=== PATIENT | male | born 1955 | race Hispanic/Latino ===

== ENCOUNTER 2018-08-12 13:01 | Inpatient (IN) | payer OTHER ==
--- NOTE | 2018-08-12 15:21 | RAD REPORT ---
EXAM DESCRIPTION: CT - Head C Spine Mpr Wo Con - 08/12/2018 3:14 pm CLINICAL HISTORY: Head and neck injury status post fall. Head and neck pain COMPARISON: None. TECHNIQUE: Computed axial tomography of the head and cervical spine was obtained. Sagittal and coronal reconstruction was performed. All CT scans are performed using dose optimization technique as appropriate and may include automated exposure control or mA/KV adjustment according to patient size. FINDINGS: An intracranial bleed is not seen. The ventricles are normal in caliber. An extra-axial fl uid collection is not noted.Fluid within the visualized sinuses and mastoids is not seen A cervical fracture is not visualized. No dislocation is noted. IMPRESSION: No acute intracranial abnormality is seen. A cervical fracture is not visualized. If the patient continues to have symptoms to suggest intracra nial /spinal cord pathology then MRI would be recommended
--- NOTE | 2018-08-12 15:38 | RAD REPORT ---
EXAM DESCRIPTION: RAD - Chest Single View - 08/12/2018 3:30 pm CLINICAL HISTORY: fall, weakness Chest pain. COMPARISON: No comparisons FINDINGS: Portable technique limits examination quality. The lungs are grossly clear. The heart is normal in size. No displaced fractures.Dual lead pacer marley ce is present. IMPRESSION: No acute intrathoracic process suspected.
[2018-08-12] MEDS ORDERED: ONDANSETRON 4 MG/2 ML VIAL ONE (15:45)
[2018-08-12] MEDS ORDERED: NA CHLORIDE 0.9% 1,000 ML ONE (15:45)
[2018-08-12 16:35] LABS: Absolute Lymphocytes (CBC) 2.1 K/uL (0.7-4.9); Absolute Monocytes 0.5 K/uL (0.1-1.3); Absolute Neutrophil 3.6 K/uL (1.8-8.0); Eosinophils % 0.5 % (0-4.4); Hematocrit 32.7 % (39.6-49.0); Lymphocytes % 32.6 % (15.3-44.8); MPV 9.4 fL (7.6-11.3); Monocytes % 8.1 % (3.3-12.3); RBC Red Blood Cell Count 4.06 M/uL (4.33-5.43)
[2018-08-12 16:36] LABS: Protime INR 3.2
[2018-08-12 16:44] LABS: ALT/SGPT 48 U/L (12-78); AST/SGOT 39 U/L (15-37); Albumin 3.2 g/dL (3.4-5.0); Alkaline Phosphatase 67 U/L (45-117); BUN Blood Urea Nitrogen 22 mg/dL (7-18); Bicarbonate 28 mmol/L (21-32); Bilirubin Direct 0.7 mg/dL (0-0.2); Bilirubin Total 1.7 mg/dL (0.2-1.0); Glucose Level 101 mg/dL (74-106); Lipase 391 U/L (73-393); NT PRO-BNP 43 pg/mL (<125); Potassium 4.2 mmol/L (3.5-5.1); Sodium Level 136 mmol/L (136-145); Troponin (Emerg Dept Use Only) < 0.02 ng/mL (0.0-0.045)
--- NOTE | 2018-08-12 17:15 | RAD REPORT ---
EXAM DESCRIPTION: CTAbdomen Pelvis W Contrast - 08/12/2018 5:02 pm CLINICAL HISTORY: Abdominal pain. right sided abdominal pain, vomiting, IV ONLY COMPARISON: No comparisons TECHNIQUE: Biphasic CT imaging of the abdomen and pelvis was performed with 100 ml non-ionic IV cont rast. All CT scans are performed using dose optimization technique as appropriate and may include automated exposure control or mA/KV adjustment according to patient size. FINDINGS: The lung bases are clear. The liver is nodular in contour and small in size. No aggressive liver lesion or biliary dilatation. Several gallstones are present in the gallbladder. The spleen, pancreas, adrenal glands and kidneys a re within normal limits. No bowel obstruction, free air, free fluid or abscess. Moderate fecal retention is seen in the rectum . The appendix is not identified as a discrete structure, however, no secondary findings of appendici tis are identified. No evidence of significant lymphadenopathy. A left-sided varicocele is present. Postsurgical fusion changes of the lumbar spine. IMPRESSION: Hepatic cirrhosis. Cholelithiasis.
[2018-08-12 18:27] LABS: Urine Blood NEGATIVE (NEG); Urine Glucose NEGATIVE (NEG); Urine Protein NEGATIVE (NEG); Urine Specific Gravity 1.025 (1.005-1.030); Urine pH 5.5 (5.0-7.0)
--- NOTE | 2018-08-12 19:27 | EDPHYS ---
Physician Documentation [facility] Name: Gibran Arambula Age: 63 yrs Sex: Male : 1955 Arrival Date: 08/12/2018 Time: 13:05 Bed 15 Private MD: ED Physician Delano Santiago HPI: 08/12 14:27 This 63 yrs old Male presents to ER via Wheelchair with complaints of Blood jmm Pressure Problem. 14:27 Onset: The symptoms/episode began/occurred this morning. This is a 63 year old male jmm with a history of htn, dm, cirrhosis that presents to the ED with low blood pressure. Patient had a fall earlier today in which he tripped and lost balance. Patient denies chest pain but complaints of lower abdominal pain. Family states the patient has had intermittent episodes of vomiting over the past 3 days. . Historical: - Allergies: 13:57 No Known Allergies; ph - PMHx: 13:57 Cirrhosis; Diabetes - NIDDM; Pacemaker; Hypertension; ph - Immunization history:: Adult Immunizations not up to date. - Social history:: Smoking status: Patient/guardian denies using tobacco, but has a distant history of tobacco abuse. - Ebola Screening: : No symptoms or risks identified at this time. ROS: 14:27 Constitutional: Negative for fever, chills, and weight loss, Cardiovascular: Negative jmm for chest pain, palpitations, and edema, Respiratory: Negative for shortness of breath, cough, wheezing, and pleuritic chest pain. 14:27 Abdomen/GI: Positive for vomiting. 14:27 Neuro: Positive for weakness. 14:27 All other systems are negative. Exam: 14:27 Constitutional: This is a well developed, well nourished patient who is awake, alert, jmm and in no acute distress. Head/Face: atraumatic. Eyes: EOMI, no conjunctival erythema appreciated ENT: Moist Mucus Membranes Neck: Trachea midline, Supple Chest/axilla: Normal chest wall appearance and motion. Cardiovascular: Regular rate and rhythm. No edema appreciated 14:27 Respiratory: the patient does not display signs of respiratory distress, Respirations: normal, Breath sounds: are clear throughout. 14:27 Abdomen/GI: Inspection: obese Bowel sounds: normal, Palpation: mild abdominal tenderness, in the right lower quadrant. 14:27 Back: ROM is normal. 14:27 Skin: Appearance: Color: normal in color. 14:27 Neuro: Orientation: appropriate for stated age, Mentation: is normal, Memory: is normal. 14:27 Psych: Behavior/mood is pleasant, cooperative. Vital Signs: 13:56 BP 99 / 53; Pulse 77; Resp 20; Temp 98.9; Pulse Ox 100% on R/A; Weight 131.54 kg; ph Height 6 ft. 1 in. (185.42 cm); 19:15 BP 112 / 58; Pulse 78; Resp 19 S; Pulse Ox 97% on R/A; cc3 20:30 BP 109 / 57; Pulse 75; Resp 18 S; Pulse Ox 97% on R/A; cc3 21:00 BP 109 / 58; Pulse 77; Resp 18 S; Pulse Ox 97% on R/A; cc3 13:56 Body Mass Index 38.26 (131.54 kg, 185.42 cm) ph MDM: 14:27 Patient medically screened. rob 19:26 Data reviewed: vital signs, nurses notes. Counseling: I had a detailed discussion with alcon the patient and/or guardian regarding: the historical points, exam findings, and any diagnostic results supporting the discharge/admit diagnosis, lab results, radiology results, the need for further work-up and treatment in the hospital. ED course: I discussed the patient with Dr. Welch whom accepted admission. . 08/12 14:40 Order name: Basic Metabolic Panel; Complete Time: 17:01 [facility] 08/12 14:40 Order name: CBC with Diff; Complete Time: 17: [facility] 08/12 14:40 Order name: LFT's; Complete Time: 17: [facility] 08/12 14:40 Order name: Magnesium; Complete Time: 17:01 [facility] 08/12 14:40 Order name: NT PRO-BNP; Complete Time: 17:01 [facility] 08/12 14:40 Order name: PT-INR; Complete Time: 17:01 [facility] 08/12 14:40 Order name: Troponin (emerg Dept Use Only); Complete Time: 17:01 [facility] 08/12 14:40 Order name: Lipase; Complete Time: 17:01 [facility] 08/12 14:40 Order name: Lactate; Complete Time: 17:47 [facility] 08/12 14:40 Order name: Procalcitonin; Complete Time: 17:01 [facility] 08/12 14:40 Order name: Blood Culture Adult (2) [facility] 08/12 14:40 Order name: AMMONIA; Complete Time: 16:31 [facility] 08/12 18:17 Order name: Urine Dipstick--Ancillary (enter results); Complete Time: 18:36 [facility] 08/12 20:02 Order name: CBC with Automated Diff [facility] 08/12 14:40 Order name: XRAY Chest (1 view); Complete Time: 15:39 [facility] 08/12 14:40 Order name: EKG; Complete Time: 14:41 [facility] 08/12 14:40 Order name: Cardiac monitoring; Complete Time: 19:28 [facility] 08/12 14:40 Order name: CT Head C Spine; Complete Time: 15:23 [facility] 08/12 14:40 Order name: CT Abd/Pelvis - W/Contrast; Complete Time: 17:47 [facility] 08/12 20:02 Order name: CONS Pharmacy Consult [facility] 08/12 20:02 Order name: Regular [facility] 08/12 20:02 Order name: CBC with Automated Diff [facility] 08/12 20:02 Order name: Comprehensive Metabolic Panel [facility] 08/12 20:02 Order name: Comprehensive Metabolic Panel [facility] 08/12 20:02 Order name: Protime (+INR) [facility] 08/12 20:02 Order name: Protime (+INR) [facility] 08/12 20:02 Order name: PTT, Activated Partial Thromb [facility] 08/12 20:02 Order name: PTT, Activated Partial Thromb [facility] 08/12 14:40 Order name: EKG - Nurse/Tech; Complete Time: 19:28 [facility] 08/12 14:40 Order name: IV Saline Lock; Complete Time: 19:28 [facility] 08/12 14:40 Order name: Labs collected and sent; Complete Time: 19:28 [facility] 08/12 14:40 Order name: O2 Per Protocol; Complete Time: 19:29 [facility] 08/12 14:40 Order name: O2 Sat Monitoring; Complete Time: 19:29 [facility] Administered Medications: 16:06 Drug: NS 0.9% 1000 ml Route: IV; Rate: 1 bolus; Site: right antecubital; ls4 17:06 Follow up: IV Status: Completed infusion ls4 16:06 Drug: Zofran 4 mg Route: IVP; Site: right antecubital; ls4 16:36 Follow up: Response: No adverse reaction; Marked relief of symptoms ls4 Point of Care Testing: Guaiac: 19:15 Stool Guaiac: Negative; Stool Hemoccult Control: Pass; mw2 Disposition: 08/13 09:20 Co-signature as Attending Physician, Delano Santiago MD I agree with the assessment and rob plan of care. Disposition: 08/12/18 19:27 Hospitalization ordered by Benjamin Welch for Observation. Preliminary diagnosis are Acidosis, Volume depletion, unspecified, Hypotension. - Bed requested for Telemetry/MedSurg (observation). - Status is Observation. cc3 - Condition is Stable. - Problem is new. - Symptoms are unchanged. UTI on Admission? No Signatures: Dispatcher [employer] EDEffie Salgado, RN RN Delano Vincent MD MD cha Mickail, Joel, PA PA jmm Hall, Patricia, RN RN Alanis Caballero cc3 Renetta Manjarrez RN RN ls4 Corrections: (The following items were deleted from the chart) 08/12 20:05 19:27 Hospitalization Ordered by Benjamin Welch MD for Observation. Preliminary dw diagnosis is Acidosis; Volume depletion, unspecified; Hypotension. Bed requested for Telemetry/MedSurg (observation). Status is Observation. Condition is Stable. Problem is new. Symptoms are unchanged. UTI on Admission? No. [facility] 21:08 20:05 08/12/2018 19:27 Hospitalization Ordered by Benjamin Welch MD for Observation. cc3 Preliminary diagnosis is Acidosis; Volume depletion, unspecified; Hypotension. Bed requested for Telemetry/MedSurg (observation). Status is Observation. Condition is Stable. Problem is new. Symptoms are unchanged. UTI on Admission? No. dw
--- NOTE | 2018-08-12 19:27 | ER ---
Nurse's Notes [facility] Name: Gibran Arambula Age: 63 yrs Sex: Male : 1955 Arrival Date: 08/12/2018 Time: 13:05 Bed 15 Private MD: Diagnosis: Acidosis;Volume depletion, unspecified;Hypotension Presentation: 08/12 13:54 Presenting complaint: Child states: Was at Dr Galvez's office for check up, BP at office ph 93/46, reports recent dx of cirrhosis, pt reports dizziness, states that he fell this morning, denies injury or pain from fall. Transition of care: patient was not received from another setting of care. Onset of symptoms was August 12, 2018. Risk Assessment: Do you want to hurt yourself or someone else? Patient reports no desire to harm self or others. Initial Sepsis Screen: Does the patient meet any 2 criteria? No. Patient's initial sepsis screen is negative. Care prior to arrival: None. 13:54 Method Of Arrival: Wheelchair ph 13:54 Acuity: FERMIN 3 ph 19:15 Initial Sepsis Screen: Does the patient have a suspected source of infection? No. cc3 Patient's initial sepsis screen is negative. Triage Assessment: 19:15 General: Appears in no apparent distress. comfortable, Behavior is calm, cooperative, cc3 appropriate for age. Pain: Denies pain. EENT: No signs and/or symptoms were reported regarding the EENT system. Neuro: Level of Consciousness is awake, alert, obeys commands, Oriented to person, place, time, situation, Appropriate for age. Cardiovascular: Patient's skin is warm and dry. Respiratory: Airway is patent Respiratory effort is even, unlabored, Respiratory pattern is regular, symmetrical. GI: Abdomen is round obese. : No signs and/or symptoms were reported regarding the genitourinary system. Derm: No signs and/or symptoms reported regarding the dermatologic system. Musculoskeletal: Circulation, motion, and sensation intact. Range of motion: intact in all extremities. Historical: - Allergies: 13:57 No Known Allergies; ph - PMHx: 13:57 Cirrhosis; Diabetes - NIDDM; Pacemaker; Hypertension; ph - Immunization history:: Adult Immunizations not up to date. - Social history:: Smoking status: Patient/guardian denies using tobacco, but has a distant history of tobacco abuse. - Ebola Screening: : No symptoms or risks identified at this time. Screenin:01 Abuse screen: Denies threats or abuse. Denies injuries from another. Nutritional ls4 screening: No deficits noted. Tuberculosis screening: No symptoms or risk factors identified. Fall Risk None identified. Assessment: 16:00 General: Appears uncomfortable, ill, obese. ls4 16:00 Pain: Denies pain. Respiratory: Airway is patent Respiratory effort is even, unlabored. ls4 GI: Abdomen is round distended. Derm: Skin is dry, Skin is pink, warm \T\ dry. normal, icteric, jaundiced, Skin temperature is warm. Musculoskeletal: Circulation, motion, and sensation intact. Capillary refill < 3 seconds, Range of motion: intact in all extremities, ataxic, uses wheelchair. 19:10 Reassessment: Patient appears in no apparent distress at this time. Patient and/or cc3 family updated on plan of care and expected duration. Pain level reassessed. Patient is alert, oriented x 3, equal unlabored respirations, skin warm/dry/pink. Received this male patient from morning shift TATY Jackson as a case of blood pressure problem. With IV cannula at the right ACV saline locked. 20:30 Reassessment: Patient appears in no apparent distress at this time. Patient and/or cc3 family updated on plan of care and expected duration. Pain level reassessed. Patient is alert, oriented x 3, equal unlabored respirations, skin warm/dry/pink. Room available in 217, TATY Landeros called and gave report to TATY Pham for continuity of care and management. 21:00 Reassessment: Patient appears in no apparent distress at this time. Patient and/or cc3 family updated on plan of care and expected duration. Pain level reassessed. Patient is alert, oriented x 3, equal unlabored respirations, skin warm/dry/pink. Patient left ER for admission vitally stable by stretcher escorted by arch support technicianaden Munoz and the patient's family. Vital Signs: 13:56 BP 99 / 53; Pulse 77; Resp 20; Temp 98.9; Pulse Ox 100% on R/A; Weight 131.54 kg; ph Height 6 ft. 1 in. (185.42 cm); 19:15 BP 112 / 58; Pulse 78; Resp 19 S; Pulse Ox 97% on R/A; cc3 20:30 BP 109 / 57; Pulse 75; Resp 18 S; Pulse Ox 97% on R/A; cc3 21:00 BP 109 / 58; Pulse 77; Resp 18 S; Pulse Ox 97% on R/A; cc3 13:56 Body Mass Index 38.26 (131.54 kg, 185.42 cm) ph ED Course: 13:05 Patient arrived in ED. tw3 13:56 Triage completed. ph 13:57 Arm band placed on. ph 14:00 Renetta Manjarrez, TATY is Primary Nurse. ls4 14:02 Ravi De Paz PA is PHCP. jmm 14:02 Delano Santiago MD is Attending Physician. jmm 15:15 CT Head C Spine In Process Unspecified. EDMS 15:30 XRAY Chest (1 view) In Process Unspecified. EDMS 15:54 Radiology exam delayed due to lab results not completed at this time. (BUN/Creatinine). jg6 16:[address] via stretcher. vm2 17:01 CT Abd/Pelvis - W/Contrast Sent. ls4 17:02 CT completed. Patient tolerated procedure well. Patient moved back from CT. jg6 17:02 CT Abd/Pelvis - W/Contrast In Process Unspecified. EDMS 19:15 Patient has correct armband on for positive identification. Placed in gown. Bed in low cc3 position. Call light in reach. Side rails up X2. program services assistant on. Pulse ox on. NIBP on. 19:27 Benjamin Welch MD is Hospitalizing Provider. [facility] 20:30 No provider procedures requiring assistance completed. Patient admitted, IV remains in cc3 place. Administered Medications: 16:06 Drug: NS 0.9% 1000 ml Route: IV; Rate: 1 bolus; Site: right antecubital; ls4 17:06 Follow up: IV Status: Completed infusion ls4 16:06 Drug: Zofran 4 mg Route: IVP; Site: right antecubital; ls4 16:36 Follow up: Response: No adverse reaction; Marked relief of symptoms ls4 Point of Care Testing: Guaiac: 19:15 Stool Guaiac: Negative; Stool Hemoccult Control: Pass; mw2 Outcome: 19:27 Decision to Hospitalize by Provider. jmm 20:30 Admitted to Med/surg accompanied by aden family with patient, via stretcher, room 217, cc3 with chart, Report called to TATY Pham 20:30 Condition: stable 20:30 Instructed on the need for admit, Demonstrated understanding of instructions. 21:08 Patient left the ED. cc3 Signatures: Dispatcher [employer] EDMS Ravi De Paz PA PA jmm Hall, Patricia, RN RN Mihir, Devi 3 Barbara Sotomayor 2 Elizabeth Fabian 2 Alanis Caballero cc3 Cecily Neville6 Renetta Manjarrez RN RN ls4 Corrections: (The following items were deleted from the chart) 16:45 16:45 Radiology exam delayed due to lab results not completed at this time. vm2 (BUN/Creatinine) vm2
[2018-08-12] MEDS ORDERED: ACETAMINOPHEN 500 MG TAB PO PRN (20:00)
[2018-08-12] MEDS ORDERED: ONDANSETRON 4 MG/2 ML VIAL IV PRN (20:00)
[2018-08-12] MEDS: LACTULOSE 20 GM/30 ML UCUP PO SCH (23:05)
[2018-08-12] MEDS: NA CHLORIDE 0.9% 1,000 ML IV SCH (23:05)
[2018-08-12] MEDS: VITAMIN K (ADULT) 10 MG/ML SQ SCH (23:06)
[2018-08-13] MEDS: LACTULOSE 20 GM/30 ML UCUP PO SCH ×4 (03:13→20:51)
[2018-08-13] MEDS: MORPHINE 2 MG/ML SYR IV PRN ×4 (03:20→20:51)
[2018-08-13 05:10] LABS: Absolute Lymphocytes (CBC) 1.4 K/uL (0.7-4.9); Absolute Monocytes 0.3 K/uL (0.1-1.3); Absolute Neutrophil 4.3 K/uL (1.8-8.0); Basophils % 1.2 % (0-1.3); Eosinophils % 0.8 % (0-4.4); Hematocrit 30.3 % (39.6-49.0); Lymphocytes % 23.1 % (15.3-44.8); MPV 9.4 fL (7.6-11.3); Monocytes % 5.4 % (3.3-12.3); RBC Red Blood Cell Count 3.78 M/uL (4.33-5.43)
--- NOTE | 2018-08-13 05:27 | EKG ---
Test Date: 2018-08-12 Test Time: 15:33:58 Laryngologist: MOOKIE MEASUREMENT RESULTS: Intervals: Rate: 79 MN: 312 QRSD: 182 QT: 500 QTc: 573 Pablo: P: MN: 312 QRS: 267 T: 77 INTERPRETIVE STATEMENTS: Atrial-sensed ventricular-paced rhythm with prolonged AV conduction tracking sinus rhythm Abnormal ECG Compared to ECG 05/01/2003 11:53:00 no significant change from previous ECG Electronically Signed On 08-13-18 05:27:11 CDT by Joni Brown
[2018-08-13 05:31] LABS: Albumin 2.9 g/dL (3.4-5.0); Bilirubin Total 1.9 mg/dL (0.2-1.0); Potassium 4.1 mmol/L (3.5-5.1); Protein, Total 6.3 g/dL (6.4-8.2)
[2018-08-13 06:04] LABS: Protime INR 4.84
[2018-08-13] MEDS: VITAMIN K (ADULT) 10 MG/ML SQ SCH (08:34)
--- NOTE | 2018-08-13 09:34 | P.HP ---
Certification for Inpatient Patient admitted to: Inpatient With expected LOS: >2 Midnights Patient will require the following post-hospital care: None Practitioner: I am a practitioner with admitting privileges, knowledge of patient current condition, hospital course, and medical plan of care. Services: Services provided to patient in accordance with Admission requirements found in Title 42 Section 412.3 of the Code of Federal Regulations Patient History Date of Service: 08/12/18 Reason for admission: Hypotension History of Present Illness: Patient is a 63-year-old gentleman who came to the hospital with hypotension. His blood pressures been running low for the last few days. He has been feeling weak and lethargic. He came into the hospital for evaluation. He was found to be hypotensive here in the hospital as well. No infectious etiology was discovered as of now. He does have cirrhosis and he is on medication for his liver cirrhosis. It may be medication induced. Will check lactic acid and procalcitonin as well. He may be needing hydration. He will be admitted to the hospital for further evaluation Allergies No Known Allergies Allergy (Verified 08/12/18 22:52) Home Medications: Amiodarone HCl [Cordarone*] 0.5 tab PO BID 08/13/18 Duloxetine [Cymbalta *] 40 mg PO DAILY 08/13/18 Furosemide [Lasix] 40 mg PO BID 08/13/18 Gabapentin 100 mg PO TID 08/13/18 Hydrocodone 10/APAP 325 [[place] 10/325*] 1 tab PO Q6H PRN 08/13/18 Iron 30 mg PO DAILY 08/13/18 Lactulose [Cephulac*] 30 mg PO TID 08/13/18 Metformin ER [Glucophage ER] 500 mg PO DAILY 08/13/18 Polyethylene Glycol 3350 [Miralax] 1 packet PO TID 08/13/18 Rivaroxaban [Xarelto*] 20 mg PO DAILY 08/13/18 Spironolactone [Aldactone*] 200 mg PO BID 08/13/18 - Past Medical/Surgical History Has patient received pneumonia vaccine in the past: Yes Diabetic: Yes -: Cirrhosis -: Type 2 diabetes -: Pacemaker -: HTN -: Chronic Pain -: Frequent Falls -: Femur Sx -: Knee Sx -: Appendectomy -: Back Sx -: Shoulder Sx - Family History Father Family History: Reviewed- Non-Contributory - Social History Smoking Status: Never smoker Alcohol use: No CD- Drugs: No Place of Residence: Home Review of Systems 10-point ROS is otherwise unremarkable Physical Examination - Vital Signs Temperature: 97.3 F Blood Pressure: 111/52 Pulse: 84 Respirations: 16 Pulse Ox (%): 97 - Physical Exam General: Alert, In no apparent distress, Oriented x3 HEENT: Atraumatic, PERRLA, Mucous membr. moist/pink, EOMI, Sclerae nonicteric Neck: Supple, 2+ carotid pulse no bruit, No LAD, Without JVD or thyroid abnormality Respiratory: Clear to auscultation bilaterally, Normal air movement Cardiovascular: Regular rate/rhythm, Normal S1 S2, No murmurs Gastrointestinal: Normal bowel sounds, Soft and benign, Non-distended, No tenderness, No rebound, No guarding Musculoskeletal: No clubbing, No tenderness, Swelling Integumentary: No rashes Neurological: Normal speech, Normal tone, Sensation intact, Cranial nerves 3-12 intact, Normal affect, Abnormal gait, Abnormal strength Lymphatics: No axilla or inguinal lymphadenopathy - Studies Laboratory Data (last 24 hrs) 08/12/18 16:00: PT 36.1 H, INR 3.20 08/12/18 16:00: WBC 6.3, Hgb 10.2 L, Hct 32.7 L, Plt Count 282 08/12/18 16:00: Sodium 136, Potassium 4.2, BUN 22 H, Creatinine 1.24, Glucose 101, Magnesium 2.0, Total Bilirubin 1.7 H, AST 39 H, ALT 48, Alkaline Phosphatase 67, Lipase 391 Assessment & Plan - Problems (Diagnosis) (1) Hypotension Current Visit: Yes Status: Acute (2) Liver cirrhosis Current Visit: Yes Status: Acute (3) Acute kidney injury Current Visit: Yes Status: Acute (4) Lactic acidosis Current Visit: Yes Status: Acute - Plan Plan: 1. Gentle hydration 2. Monitor vitals closely 3. Recheck LFTs and albumin level 4. Check cortisol and aldosterone level 5. Repeat lactic acid and procalcitonin levels 6. GI and DVT prophylaxis - Advance Directives Does patient have a Living Will: Yes Does patient have a Durable POA for Healthcare: Yes - Code Status/Comfort Care Code Status: Full Code Critical Care: No Time Spent Managing PTS Care (In Minutes): 55
[2018-08-13] MEDS: NA CHLORIDE 0.9% 1,000 ML IV SCH ×2 (10:47→23:42)
[2018-08-14] MEDS: LACTULOSE 20 GM/30 ML UCUP PO SCH ×4 (02:38→21:50)
[2018-08-14] MEDS: NA CHLORIDE 0.9% 1,000 ML IV SCH (12:00)
--- NOTE | 2018-08-14 12:07 | P.PN ---
Subjective Date of Service: 08/13/18 patient still has elevated lactic acid level. . Unsure as to the etiology of his lactic acidosis. But it has increased significantly. Concern for liver disease causing this elevation. However, clinically patient continues to feel better. if his labs have improved and he clinically is doing better we will go ahead and ambulate him and then arrange for possible discharge in the morning. Review of Systems 10-point ROS is otherwise unremarkable Physical Examination - Vital Signs Temperature: 97.3 F Blood Pressure: 111/52 Pulse: 84 Respirations: 16 Pulse Ox (%): 97 - Physical Exam General: Alert, In no apparent distress, Oriented x3 HEENT: Atraumatic, Normocephalic Respiratory: Clear to auscultation bilaterally, Normal air movement Cardiovascular: No edema, Normal pulses Gastrointestinal: Normal bowel sounds, Soft and benign, Non-distended Musculoskeletal: No clubbing, No swelling, No contractures Integumentary: No rashes, No breakdown, No significant lesion, No tenderness/ swelling Neurological: Normal gait Lymphatics: No axilla or inguinal lymphadenopathy Assessment & Plan - Problems (Diagnosis) (1) Hypotension Current Visit: Yes Status: Acute (2) Liver cirrhosis Current Visit: Yes Status: Acute (3) Acute kidney injury Current Visit: Yes Status: Acute (4) Lactic acidosis Current Visit: Yes Status: Acute - Plan Plan: 1. Gentle hydration; Plan to stop metformin as this could be causing elevation of his lactic acidosis. Adjust his antihypertensives. his blood pressure was severely low which may have left him weak and debilitated. Will allow his blood pressure the come back up. Continue amiodarone dosing as well. 2. Monitor vitals closely 3. Recheck LFTs and albumin level 4. Check cortisol and aldosterone level 5. Repeat lactic acid and procalcitonin levels 6. GI and DVT prophylaxis Discharge Plan: Home Plan to discharge in: 48 Hours - Advance Directives Does patient have a Living Will: Yes Does patient have a Durable POA for Healthcare: Yes - Code Status/Comfort Care Code Status: Full Code Critical Care: No Time Spent Managing PTS Care (In Minutes): 45
[2018-08-14] MEDS ORDERED: POLYETHYL GLY 3350 17 GM/DOSE PO PRN (12:19)
--- NOTE | 2018-08-14 12:45 | P.DS ---
Discharge Date: 08/14/18 Disposition: ROUTINE DISCHARGE Discharge Condition: GOOD Reason for Admission: Hypotension - Problems (1) Hypotension Current Visit: Yes Status: Acute (2) Liver cirrhosis Current Visit: Yes Status: Acute (3) Acute kidney injury Current Visit: Yes Status: Acute (4) Lactic acidosis Current Visit: Yes Status: Acute Brief History of Present Illness: Patient is a 63-year-old gentleman who came to the hospital with hypotension. His blood pressures been running low for the last few days. He has been feeling weak and lethargic. He came into the hospital for evaluation. He was found to be hypotensive here in the hospital as well. No infectious etiology was discovered as of now. He does have cirrhosis and he is on medication for his liver cirrhosis. It may be medication induced. Will check lactic acid and procalcitonin as well. He may be needing hydration. He will be admitted to the hospital for further evaluation Hospital Course: Patient has done well during hospital stay . Patient diuresis were held. His blood pressure has improved. We have adjusted his diuretics. We have also advised him to hold metformin because the risk of lactic acidosis. 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 Patient is stable for discharge at this time. Vital Signs/Physical Exam: Temp Pulse Resp BP Pulse Ox 97.3 F 84 16 111/52 L 97 08/14/18 12:26 08/14/18 12:26 08/14/18 12:26 08/14/18 12:26 08/14/18 12:26 General: Alert, In no apparent distress, Oriented x3 Laboratory Data at Discharge: WBC 6.1 K/uL (4.3-10.9) 08/13/18 04:32 Hgb 9.8 g/dL (13.6-17.9) L 08/13/18 04:32 Hct 30.3 % (39.6-49.0) L 08/13/18 04:32 Plt Count 236 K/uL (152-406) 08/13/18 04:32 PT 53.7 SECONDS (9.5-12.5) H 08/13/18 04:32 INR 4.84 H* 08/13/18 04:32 APTT 43.9 SECONDS (24.3-36.9) H 08/13/18 04:32 Sodium 137 mmol/L (136-145) 08/13/18 04:32 Potassium 4.1 mmol/L (3.5-5.1) 08/13/18 04:32 BUN 21 mg/dL (7-18) H 08/13/18 04:32 Creatinine 1.12 mg/dL (0.55-1.3) 08/13/18 04:32 Glucose 136 mg/dL (74-106) H 08/13/18 04:32 Magnesium 2.0 mg/dL (1.8-2.4) 08/12/18 16:00 Total Bilirubin 1.9 mg/dL (0.2-1.0) H 08/13/18 04:32 AST 36 U/L (15-37) 08/13/18 04:32 ALT 42 U/L (12-78) 08/13/18 04:32 Alkaline Phosphatase 57 U/L (45-117) 08/13/18 04:32 Lipase 391 U/L (73-393) 08/12/18 16:00 Home Medications: Amiodarone HCl [Cordarone*] 0.5 tab PO BID 08/13/18 Duloxetine [Cymbalta *] 40 mg PO DAILY 08/13/18 Gabapentin 100 mg PO TID 08/13/18 Hydrocodone 10/APAP 325 [[place] 10/325*] 1 tab PO Q6H PRN 08/13/18 Iron 30 mg PO DAILY 08/13/18 Lactulose [Cephulac*] 30 mg PO TID 08/13/18 Polyethylene Glycol 3350 [Miralax] 1 packet PO TID 08/13/18 Rivaroxaban [Xarelto*] 20 mg PO DAILY 08/13/18 Furosemide [Lasix*] 20 mg PO BID #30 tab 08/14/18 Spironolactone [Aldactone*] 100 mg PO BID #60 tab 08/14/18 New Medications: Furosemide [Lasix*] 20 mg PO BID #30 tab Spironolactone [Aldactone*] 100 mg PO BID #60 tab Patient Discharge Instructions: OK TO DC IV AND DC HOME. FOLLOW-UP WITH PRIMARY CARE PROVIDER IN 1-2 WEEKS. FOLLOW-UP WITH CARDIOLOGY IN 1-2 WEEKS. RETURN TO THE ER IF the symptoms worsen. CALL DR. SWAIN AT [phone] IF ANY QUESTIONS REGARDING HOSPITAL STAY. PLEASE CALL THE FLOOR AT [phone] IF ANY MEDICATION OR NURSING QUESTIONS. Diet: Low sodium Activity: Ad lyn Time spent managing pt's care (in minutes): 35
[2018-08-14] MEDS: HYDROCODONE/APAP 10/325 TAB PO PRN (15:21)
[2018-08-14] MEDS: GABAPENTIN 100 MG CAP PO SCH ×2 (15:21→21:53)
[2018-08-14] MEDS: RIVAROXABAN 10 MG TABLET PO SCH (17:00)
[2018-08-14] MEDS ORDERED: FUROSEMIDE 40 MG TABLET PO SCH (21:00)
[2018-08-14] MEDS ORDERED: SPIRONOLACTONE 100 MG TAB PO SCH ×2 (21:00)
[2018-08-14] MEDS: AMIODARONE HCL 200 MG TAB PO SCH (21:52)
[2018-08-14] MEDS: FUROSEMIDE 20 MG TABLET PO SCH (21:52)
[2018-08-14 23:40] LABS: Urine Appearance CLEAR; Urine Bilirubin NEGATIVE (NEG); Urine Blood NEGATIVE (NEG); Urine Color YELLOW; Urine Glucose 2+ (NEG); Urine Protein NEGATIVE (NEG); Urine Specific Gravity 1.025 (1.005-1.030)
[2018-08-14 23:43] LABS: Urine Microscopic Reflex NO UMIC
[2018-08-15] MEDS: NA CHLORIDE 0.9% 1,000 ML IV SCH ×2 (02:42→14:37)
[2018-08-15 06:53] LABS: Protime INR 1.97
[2018-08-15 06:56] LABS: Absolute Lymphocytes (CBC) 1.5 K/uL (0.7-4.9); Absolute Monocytes 0.4 K/uL (0.1-1.3); Absolute Neutrophil 2.2 K/uL (1.8-8.0); Basophils % 1.8 % (0-1.3); Eosinophils % 1.6 % (0-4.4); Lymphocytes % 35.6 % (15.3-44.8); MPV 9.3 fL (7.6-11.3); Monocytes % 8.6 % (3.3-12.3)
[2018-08-15 07:32] LABS: ALT/SGPT 45 U/L (12-78); AST/SGOT 44 U/L (15-37); Albumin 2.8 g/dL (3.4-5.0); Alkaline Phosphatase 56 U/L (45-117); BUN Blood Urea Nitrogen 12 mg/dL (7-18); Bicarbonate 27 mmol/L (21-32); Bilirubin Total 1.6 mg/dL (0.2-1.0); Glucose Level 83 mg/dL (74-106); Magnesium 1.9 mg/dL (1.8-2.4); Phosphorus 2.9 mg/dL (2.5-4.9); Potassium 4.1 mmol/L (3.5-5.1); Protein, Total 5.9 g/dL (6.4-8.2); Sodium Level 138 mmol/L (136-145)
[2018-08-15] MEDS ORDERED: IRON PO SCH (09:00)
[2018-08-15] MEDS: DULOXETINE 20 MG CAP PO SCH (09:43)
[2018-08-15] MEDS: GABAPENTIN 100 MG CAP PO SCH ×3 (09:44→20:53)
[2018-08-15] MEDS: LACTULOSE 20 GM/30 ML UCUP PO SCH ×3 (09:44→20:55)
[2018-08-15] MEDS: AMIODARONE HCL 200 MG TAB PO SCH ×2 (09:44→20:54)
[2018-08-15] MEDS: FUROSEMIDE 20 MG TABLET PO SCH ×2 (09:44→20:54)
[2018-08-15] MEDS: FERROUS GLUCONATE 300 MG TAB PO SCH (09:44)
[2018-08-15] MEDS: SPIRONOLACTONE 25 MG TABLET PO SCH ×2 (09:44→20:53)
[2018-08-15] MEDS: HYDROCODONE/APAP 10/325 TAB PO PRN ×2 (09:50→20:54)
--- NOTE | 2018-08-15 17:44 | PN ---
Date of Progress Note: 08/15/2018 Subjective: The patient seen and examined. Chart reviewed and case discussed with RN. The patient still seems lethargic. Working with PT. Code Status: Full. Medications: List reviewed. Physical Examination: Vital Signs: Temperature 97.6, heart rate 76, blood pressure 115/59, respirations 18, O2 97% on room air. General: Awake, alert, oriented x3. Elderly male, appears older than stated age. Obese, BMI 37. CV: S1, S2. Regular rate and rhythm. Peripheral pulses present. Respiratory: Moving air well bilaterally. No wheezing. Gastrointestinal: Abdomen is soft, nontender, nondistended. Positive bowel sounds. Extremities: No clubbing or cyanosis. Minimal pedal edema. Neurologic: Nonfocal. The patient does have generalized weakness. Laboratory Data: Sodium 138, potassium 3.1, chloride 106, CO2 27, BUN 12, creatinine 0.81, glucose 83, calcium 7.9, phosphorus 2.9, magnesium 1.9, albumin 2.8, vitamin B12 1010, folate 11, TSH 3.7, cortisol 10.8. INR 1.97. WBC 4.2, H and H 9.3/29, platelets 198, neutrophils 52%. Blood cultures, no growth to date. Assessment: A 63-year-old male with: 1. Hypotension. Blood pressure is improving. Diuretics have been held. 2. Lactic acidosis, improving. Continue with IV fluids. 3. Acute kidney injury. Creatinine has improved. 4. Liver cirrhosis. 5. Chronic anticoagulation. 6. Coagulopathy. Corrected. Plan: Continue PT, OT. The patient will need possible halfway facility placement or rehab. We will discuss further with the patient and family. DVT prophylaxis already addressed. The patient is on blood thinners. SA/MODL Voice ID: [id number] Report ID: [id number] JASMINA
[2018-08-15] MEDS: RIVAROXABAN 10 MG TABLET PO SCH (18:53)
[2018-08-16] MEDS: NA CHLORIDE 0.9% 1,000 ML IV SCH (03:06)
[2018-08-16 05:46] LABS: Absolute Lymphocytes (CBC) 1.4 K/uL (0.7-4.9); Absolute Monocytes 0.3 K/uL (0.1-1.3); Absolute Neutrophil 1.8 K/uL (1.8-8.0); Basophils % 1.9 % (0-1.3); Hematocrit 27.5 % (39.6-49.0); Lymphocytes % 39.5 % (15.3-44.8); MPV 9.4 fL (7.6-11.3); Monocytes % 8.2 % (3.3-12.3); RBC Red Blood Cell Count 3.41 M/uL (4.33-5.43)
[2018-08-16 05:59] LABS: BUN Blood Urea Nitrogen 9 mg/dL (7-18); Bicarbonate 25 mmol/L (21-32); Glucose Level 109 mg/dL (74-106); Magnesium 1.9 mg/dL (1.8-2.4); Sodium Level 137 mmol/L (136-145)
[2018-08-16] MEDS: FUROSEMIDE 20 MG TABLET PO SCH (09:00)
--- NOTE | 2018-08-16 10:11 | P.DS ---
Admission Date: 08/13/18 Discharge Date: 08/16/18 Primary Care Provider: Dr. Muhammad; Pain management-Dr. Westbrook Disposition: DC HOME/HOME HEALTH CARE Discharge Condition: GOOD Reason for Admission: Hypotension Consultations: None Procedures: CT head: COMPARISON: None. TECHNIQUE: Computed axial tomography of the head and cervical spine was obtained. Sagittal and coronal reconstruction was performed. All CT scans are performed using dose optimization technique as appropriate and may include automated exposure control or mA/KV adjustment according to patient size. FINDINGS: An intracranial bleed is not seen. The ventricles are normal in caliber. An extra-axial fluid collection is not noted.Fluid within the visualized sinuses and mastoids is not seen A cervical fracture is not visualized. No dislocation is noted. IMPRESSION: No acute intracranial abnormality is seen. A cervical fracture is not visualized. CT AB: COMPARISON: No comparisons TECHNIQUE: Biphasic CT imaging of the abdomen and pelvis was performed with 100 ml non-ionic IV contrast. All CT scans are performed using dose optimization technique as appropriate and may include automated exposure control or mA/KV adjustment according to patient size. FINDINGS: The lung bases are clear. The liver is nodular in contour and small in size. No aggressive liver lesion or biliary dilatation. Several gallstones are present in the gallbladder. The spleen, pancreas, adrenal glands and kidneys are within normal limits. No bowel obstruction, free air, free fluid or abscess. Moderate fecal retention is seen in the rectum. The appendix is not identified as a discrete structure, however, no secondary findings of appendicitis are identified. No evidence of significant lymphadenopathy. A left-sided varicocele is present. Postsurgical fusion changes of the lumbar spine. IMPRESSION: Hepatic cirrhosis. Cholelithiasis. CXR: COMPARISON: No comparisons FINDINGS: Portable technique limits examination quality. The lungs are grossly clear. The heart is normal in size. No displaced fractures.Dual lead pacer device is present. IMPRESSION: No acute intrathoracic process suspected. Medical Problem List: Hypotension secondary to medications Acute renal injury likely from dehydration with lactic acidosis Chronic liver cirrhosis Chronic atrial fibrillation on chronic anti coagulation therapy History of dual lead pacemaker Chronic pain syndrome Anemia of chronic disease Brief History of Present Illness: 63-year-old male presented to emergency room with hypotension. Patient seen by his PCP and sent to the ER for low blood pressure. Patient had been feeling weak and lethargic. Patient with history of chronic atrial fibrillation, liver cirrhosis, hypertension and diabetes. Patient was admitted for further evaluation. Hospital Course: Patient presented with hypotension secondary to medications. Patient also found to have acute renal injury with dehydration and lactic acidosis likely related to medication as well. Medications were adjusted. Patient with history of liver cirrhosis and chronic atrial fibrillation on chronic anti coagulation therapy. Patient previously on Aldactone 100 mg 1 pill twice daily and Lasix 40 mg 1 pill twice daily. Both medications were decreased. At discharge renal function improved. Patient back to his baseline. At discharge he will continue with Aldactone 25 mg 1 pill twice daily and Lasix 20 mg 1 pill twice daily. He is to continue a 1500 cc per day fluid restriction and low- salt diet. He is to monitor his weight daily. If his weight increases by more than 5 lb he is to contact his PCP for further recommendation. Recommend to recheck lab-BMP in 1-2 weeks to monitor his progress. Further adjustment in medication may be required if low blood pressure continues. Recommend to follow up with PCP within 1 week. Patient with chronic liver cirrhosis. Diuretic therapy at adjusted as above. At discharge he will continue with lactulose 30 mg 3 times a day. He is to maintain 3-4 bowel movements daily. Recommend to follow up with GI as directed. Patient with chronic pain. Patient seen by chronic pain management physician. At discharge he will continue with hydrocodone 10/325 every 6 hr as needed for pain, gabapentin 100 mg 1 pill 3 times a day, and Cymbalta 40 mg daily. Patient will follow up with pain management to continue his care and refill on medication. Patient with chronic atrial fibrillation on chronic anti coagulation therapy. At discharge he will continue with amiodarone 100 mg 1 pill twice daily and Xarelto 20 mg daily. Recommend follow up with cardiology as directed. At discharge patient will continue with home health and physical therapy. Vital Signs/Physical Exam: Temp Pulse Resp BP Pulse Ox 97.2 F 64 16 107/56 L 96 08/16/18 04:00 08/16/18 04:00 08/16/18 04:00 08/16/18 04:00 08/16/18 04:00 General: Alert, In no apparent distress, Oriented x3, Cooperative HEENT: Atraumatic Neck: Supple Respiratory: Clear to auscultation bilaterally, Normal air movement Cardiovascular: Normal pulses, Regular rate/rhythm Gastrointestinal: Normal bowel sounds, Soft and benign, Non-distended, No tenderness, No masses, No rebound, No guarding Musculoskeletal: No erythema, No tenderness, No warmth Integumentary: No tenderness/swelling, No erythema, No warmth, No cyanosis Neurological: Normal speech, Normal strength at 5/5 x4 extr, Normal tone, Normal affect Laboratory Data at Discharge: WBC 3.7 K/uL (4.3-10.9) L 08/16/18 05:16 Hgb 8.7 g/dL (13.6-17.9) L 08/16/18 05:16 Hct 27.5 % (39.6-49.0) L 08/16/18 05:16 Plt Count 179 K/uL (152-406) 08/16/18 05:16 PT 22.6 SECONDS (9.5-12.5) H 08/15/18 06:28 INR 1.97 08/15/18 06:28 APTT 43.9 SECONDS (24.3-36.9) H 08/13/18 04:32 Sodium 137 mmol/L (136-145) 08/16/18 05:16 Potassium 4.0 mmol/L (3.5-5.1) 08/16/18 05:16 BUN 9 mg/dL (7-18) 08/16/18 05:16 Creatinine 0.83 mg/dL (0.55-1.3) 08/16/18 05:16 Glucose 109 mg/dL (74-106) H 08/16/18 05:16 Phosphorus 2.9 mg/dL (2.5-4.9) 08/15/18 06:28 Magnesium 1.9 mg/dL (1.8-2.4) 08/16/18 05:16 Total Bilirubin 1.6 mg/dL (0.2-1.0) H 08/15/18 06:28 AST 44 U/L (15-37) H 08/15/18 06:28 ALT 45 U/L (12-78) 08/15/18 06:28 Alkaline Phosphatase 56 U/L (45-117) 08/15/18 06:28 Lipase 391 U/L (73-393) 08/12/18 16:00 Home Medications: Amiodarone HCl [Cordarone*] 0.5 tab PO BID 08/13/18 Duloxetine [Cymbalta *] 40 mg PO DAILY 08/13/18 Gabapentin 100 mg PO TID 08/13/18 Hydrocodone 10/APAP 325 [[place] 10/325*] 1 tab PO Q6H PRN 08/13/18 Iron 30 mg PO DAILY 08/13/18 Lactulose [Cephulac*] 30 mg PO TID 08/13/18 Polyethylene Glycol 3350 [Miralax] 1 packet PO TID 08/13/18 Rivaroxaban [Xarelto*] 20 mg PO DAILY 08/13/18 Furosemide [Lasix*] 20 mg PO BID #60 tab 08/16/18 Spironolactone [Aldactone*] 25 mg PO BID #60 tab 08/16/18 New Medications: Furosemide [Lasix*] 20 mg PO BID #60 tab Spironolactone [Aldactone*] 25 mg PO BID #60 tab Patient Discharge Instructions: 1. Recommend a follow up with his PCP within 1 week to follow up this hospitalization. 2. Patient presented with hypotension secondary to medications. Patient also found to have acute renal injury with dehydration and lactic acidosis likely related to medication as well. Medications were adjusted. Patient with history of liver cirrhosis and chronic atrial fibrillation on chronic anti coagulation therapy. Patient previously on Aldactone 100 mg 1 pill twice daily and Lasix 40 mg 1 pill twice daily. Both medications were decreased. At discharge renal function improved. Patient back to his baseline. At discharge he will continue with Aldactone 25 mg 1 pill twice daily and Lasix 20 mg 1 pill twice daily. He is to continue a 1500 cc per day fluid restriction and low-salt diet. He is to monitor his weight daily. If his weight increases by more than 5 lb he is to contact his PCP for further recommendation. Recommend to recheck lab-BMP in 1-2 weeks to monitor his progress. Further adjustment in medication may be required if low blood pressure continues. Recommend to follow up with PCP within 1 week. 3. Patient with chronic liver cirrhosis. Diuretic therapy at adjusted as above. At discharge he will continue with lactulose 30 mg 3 times a day. He is to maintain 3-4 bowel movements daily. Recommend to follow up with GI as directed. 4. Patient with chronic pain. Patient seen by chronic pain management physician. At discharge he will continue with hydrocodone 10/325 every 6 hr as needed for pain, gabapentin 100 mg 1 pill 3 times a day, and Cymbalta 40 mg daily. Patient will follow up with pain management to continue his care and refill on medication. 5. Patient with chronic atrial fibrillation on chronic anti coagulation therapy. At discharge he will continue with amiodarone 100 mg 1 pill twice daily and Xarelto 20 mg daily. Recommend follow up with cardiology as directed. 6. At discharge patient will continue with home health and physical therapy. Diet: Low sodium Activity: Fall precautions Time spent managing pt's care (in minutes): 55
[2018-08-16] MEDS: SPIRONOLACTONE 25 MG TABLET PO SCH (11:05)
[2018-08-16] MEDS: DULOXETINE 20 MG CAP PO SCH (11:05)
[2018-08-16] MEDS: GABAPENTIN 100 MG CAP PO SCH (11:06)
[2018-08-16] MEDS: LACTULOSE 20 GM/30 ML UCUP PO SCH (11:06)
[2018-08-16] MEDS: AMIODARONE HCL 200 MG TAB PO SCH (11:06)
[2018-08-16] MEDS: FERROUS GLUCONATE 300 MG TAB PO SCH (11:06)
== END 2018-08-16 12:00 | disposition home health service (06) | DRG 312 ==
LOC: ER 13:01 → ERHOLD 20:00 → INTOOBSV 20:00 → OBSVTOIN 20:00 → 2ND 20:42 → OBSVTOIN 08-13 10:29
PROVIDERS: ADMIT Hospitalist; ATTEND Family Medicine
DX: I95.2 Hypotension due to drugs (principal); N17.9 Acute kidney failure, unspecified; E87.2 Acidosis; D68.9 Coagulation defect, unspecified; T50.0X5A Adverse effect of mineralocorticoids and their antagonists, initial encounter; Y92.019 Unspecified place in single-family (private) house as the place of occurrence of the external cause; N14.1 Nephropathy induced by other drugs, medicaments and biological substances; E86.0 Dehydration; I48.2 Chronic atrial fibrillation; Z79.01 Long term (current) use of anticoagulants; K74.60 Unspecified cirrhosis of liver; Z95.0 Presence of cardiac pacemaker; G89.4 Chronic pain syndrome; D63.8 Anemia in other chronic diseases classified elsewhere; Z87.891 Personal history of nicotine dependence
CPT/HCPCS: 36415; 70450; 71045; 72125; 74177; 80048; 80053; 80076; 81003; 82140; 82533; 82607; 82746; 83605; 83690; 83735; 83880; 84100; 84145; 84439; 84443; 84484; 85025; 85044; 85610; 85730; 87040; 93005; 96361; 96374; 97110; 97116; 97161; 97530; 99285; G0378; J2270; J2405; J3430; J7030; Q9967

== ENCOUNTER 2018-08-22 22:05 | Inpatient (IN) | payer OTHER ==
[2018-08-22 23:27] LABS: Urine Blood NEGATIVE (NEG); Urine Glucose NEGATIVE (NEG); Urine Protein 1+ (NEG); Urine Specific Gravity 1.025 (1.005-1.030); Urine pH 5.5 (5.0-7.0)
[2018-08-23 00:18] LABS: Absolute Lymphocytes (CBC) 1.7 K/uL (0.7-4.9); Absolute Monocytes 0.6 K/uL (0.1-1.3); Absolute Neutrophil 3.1 K/uL (1.8-8.0); Basophils % 1.6 % (0-1.3); Eosinophils % 0.1 % (0-4.4); Hematocrit 34.1 % (39.6-49.0); MPV 9.8 fL (7.6-11.3); Monocytes % 11.5 % (3.3-12.3)
[2018-08-23 00:21] LABS: Protime INR 3.01
[2018-08-23 00:38] LABS: Albumin 3.2 g/dL (3.4-5.0); Bilirubin Direct 0.9 mg/dL (0-0.2); Bilirubin Total 2.7 mg/dL (0.2-1.0); Protein, Total 6.9 g/dL (6.4-8.2); Troponin (Emerg Dept Use Only) 0.02 ng/mL (0.0-0.045)
--- NOTE | 2018-08-23 01:17 | EDPHYS ---
Physician Documentation [facility] Name: Gibran Arambula Age: 63 yrs Sex: Male : 1955 Arrival Date: 08/22/2018 Time: 22:14 Bed 26 Private MD: ED Physician Toi Choi HPI: 08/23 06:26 This 63 yrs old Male presents to ER via EMS with complaints of Altered Mental tw4 Status. 06:26 The patient presents with decreased responsiveness. Onset: The symptoms/episode tw4 began/occurred today. Possible causes: head injury, low blood sugar, unknown. Associated signs and symptoms: Pertinent positives: confusion, Pertinent negatives: abdominal pain, agitation, ataxia, blurred vision, combativeness, diaphoresis, diarrhea, dizziness. Current symptoms: In the emergency department the patient's symptoms are unchanged from the initial presentation. Patient's baseline: Neuro: alert and fully oriented, Motor: no deficits, Ambulation: walks without assistance. The patient has not experienced similar symptoms in the past. Historical: - Allergies: 01:16 No Known Allergies; la1 - PMHx: 00:15 Cirrhosis; Diabetes - NIDDM; Hypertension; Pacemaker; la1 - Immunization history:: Adult Immunizations unknown. - Social history:: Smoking status: unknown. - Ebola Screening: : No symptoms or risks identified at this time. ROS: 06:26 Constitutional: Negative for fever, chills, and weight loss, Eyes: Negative for injury, tw4 pain, redness, and discharge, Cardiovascular: Negative for chest pain, palpitations, and edema, Respiratory: Negative for shortness of breath, cough, wheezing, and pleuritic chest pain, Abdomen/GI: Negative for abdominal pain, nausea, vomiting, diarrhea, and constipation, Back: Negative for injury and pain, MS/Extremity: Negative for injury and deformity, Skin: Negative for injury, rash, and discoloration. 06:26 Neuro: Positive for altered mental status, Negative for dizziness, gait disturbance, seizure activity, speech changes, syncope, near syncope, tinnitus, visual changes. Exam: 06:26 Constitutional: This is a well developed, well nourished patient who is awake, alert, tw4 and in no acute distress. Head/Face: Normocephalic, atraumatic. Chest/axilla: Normal chest wall appearance and motion. Nontender with no deformity. No lesions are appreciated. Cardiovascular: Regular rate and rhythm with a normal S1 and S2. No gallops, murmurs, or rubs. Normal PMI, no JVD. No pulse deficits. Respiratory: Lungs have equal breath sounds bilaterally, clear to auscultation and percussion. No rales, rhonchi or wheezes noted. No increased work of breathing, no retractions or nasal flaring. Abdomen/GI: Soft, non-tender, with normal bowel sounds. No distension or tympany. No guarding or rebound. No evidence of tenderness throughout. MS/ Extremity: Pulses equal, no cyanosis. Neurovascular intact. Full, normal range of motion. 06:26 Neuro: Orientation: Not oriented to place, time, situation, Mentation: slow to respond, confused, Cranial nerves: CN II- XII are normal as tested. Vital Signs: 08/22 22:21 BP 118 / 54; Pulse 77; Resp 18; Temp 100.1; Pulse Ox 99% on R/A; ca1 08/23 00:15 BP 125 / 75; Pulse 92; Resp 18; Pulse Ox 98% on R/A; la1 01:09 BP 107 / 58; Pulse 75; Resp 18; Pulse Ox 98% on R/A; la1 02:33 BP 108 / 76; Pulse 76; Resp 18; Temp 98.0(O); Pulse Ox 98% on R/A; la1 MDM: 08/22 22:15 Patient medically screened. tw4 08/23 06:26 Differential Diagnosis: CVA, electrolyte abnormality, overdose, pneumonia, seizure, tw4 sepsis, volume depletion. Data reviewed: vital signs, nurses notes. Data interpreted: Pulse oximetry: Interpretation: normal. Counseling: I had a detailed discussion with the patient and/or guardian regarding: the historical points, exam findings, and any diagnostic results supporting the discharge/admit diagnosis, lab results. Physician consultation: Helen Wheeler MD regarding admission, patient's condition, need to come to ED to see patient, and will see patient in ED. 08/22 22:16 Order name: Basic Metabolic Panel tw4 08/22 22:16 Order name: CBC with Diff tw4 08/22 22:16 Order name: LFT's tw4 08/22 22:16 Order name: Magnesium; Complete [facility] 08/[facility] 22:16 Order name: NT PRO-BNP 08/22 22:16 Order name: PT-INR 08/22 22:16 Order name: Troponin (emerg Dept Use Only) 08/22 22:16 Order name: AMMONIA; Complete [facility]: 01:08 [facility] 08/22 22:17 Order name: Basic Metabolic Panel; Complete Time: 01:09 [facility] 08/23 01:09 Interpretation: Normal except: GFR 45; CRE 1.57; BUN 24; GLUC 135. 08/22 22:17 Order name: CBC with Automated Diff; Complete Time: 01:10 [facility] 08/23 01:10 Interpretation: Normal except: WBC 5.5; RBC 4.30; HGB 11.1; HCT 34.1; MCV 79.3; MCH tw4 25.7; RDW 19.7; BASO% 1.6. 08/22 22:17 Order name: Liver (Hepatic) Function; Complete Time: 01:10 [facility] 08/23 01:10 Interpretation: Normal except: AST 52; BILIT 2.7; BILID 0.9; ALB 3.2; GLOB 3.7; A/G 0.9.08/22 23:24 Order name: Urine Dipstick--Ancillary (enter results) [facility] 08/23 02:15 Order name: Lactate [facility] 08/23 02:15 Order name: Procalcitonin [facility] 08/22 22:16 Order name: XRAY Chest (1 view) [facility] 08/22 22:16 Order name: EKG; Complete Time: 22:18 08/22 22:16 Order name: Cardiac monitoring; Complete Time: 22:34 08/22 22:16 Order name: EKG - Nurse/Tech; Complete Time: 22:34 [facility] 08/22 22:16 Order name: IV Saline Lock; Complete Time: 00:17 08/22 22:16 Order name: Labs collected and sent; Complete Time: 00:17 08/22 22:16 Order name: O2 Per Protocol; Complete Time: 22:34 [facility] 08/22 22:16 Order name: O2 Sat Monitoring; Complete Time: 22:34 08/22 22:16 Order name: CT Head Brain wo Cont tw4 Administered Medications: 02:04 Drug: Lactulose 30 grams Volume: 45 ml; Route: PO; la1 02:10 Follow up: Response: No adverse reaction la1 Disposition: 08/23/18 01:16 Hospitalization ordered by Helen Wheeler for Inpatient Admission. 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 - Bed requested for Telemetry/MedSurg (Inpatient). - Status is Inpatient Admission. bb - Condition is Stable. - Problem is an ongoing problem. - Symptoms are unchanged. UTI on Admission? No Signatures: Dispatcher [employer] EDMS Emma Singer RN RN bb Attema, Lee, RN RN la1 Naty Neville RN RN cg Wadley, Terrence, MD MD tw4 Corrections: (The following items were deleted from the chart) 02:20 01:16 Hospitalization Ordered by Helen Wheeler MD for Inpatient Admission. Preliminary cg diagnosis is Heptatic encephaloathy; Hyperammonemia. Bed requested for Telemetry/MedSurg (Inpatient). Status is Inpatient Admission. Condition is Stable. Problem is an ongoing problem. Symptoms are unchanged. UTI on Admission? No. tw4 03:26 02:20 08/23/2018 01:16 Hospitalization Ordered by Helen Wheeler MD for Inpatient bb Admission. 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 Bed requested for Telemetry/MedSurg (Inpatient). Status is Inpatient Admission. Condition is Stable. Problem is an ongoing problem. Symptoms are unchanged. UTI on Admission? No. cg
--- NOTE | 2018-08-23 01:17 | ER ---
Nurse's Notes [facility] Name: Gibran Arambula Age: 63 yrs Sex: Male : 1955 Arrival Date: 08/22/2018 Time: 22:14 Bed 26 Private MD: Diagnosis: Heptatic encephaloathy;Hyperammonemia Presentation: 08/22 22:21 Presenting complaint: EMS states: family states AMS, pt has liver cirrhosis, the last ca1 time pt was this way was when he had elevated ammonia in his blood. SBP is at 90s to 100s. Transition of care: patient was not received from another setting of care. Onset of symptoms was August 22, 2018. Risk Assessment: Do you want to hurt yourself or someone else? Patient reports no desire to harm self or others. Initial Sepsis Screen: Does the patient meet any 2 criteria? Altered Mental Status. Does the patient have a suspected source of infection? No. Patient's initial sepsis screen is negative. Care prior to arrival: Medication(s) given: Normal saline infusion, 1000 mL, IV initiated. 20 GA, in the right antecubital area, Glucose check: 142. 22:21 Method Of Arrival: EMS: [facility] ca1 22:21 Acuity: FERMIN 2 ca1 Triage Assessment: 22:21 General: Appears in no apparent distress. uncomfortable, ill, Behavior is cooperative. ca1 Pain:. Neuro: Level of Consciousness is awake, confused, Oriented to person. Historical: - Allergies: 08/23 01:16 No Known Allergies; la1 - PMHx: 00:15 Cirrhosis; Diabetes - NIDDM; Hypertension; Pacemaker; la1 - Immunization history:: Adult Immunizations unknown. - Social history:: Smoking status: unknown. - Ebola Screening: : No symptoms or risks identified at this time. Screenin:16 Abuse screen: Denies threats or abuse. Nutritional screening: No deficits noted. la1 Tuberculosis screening: No symptoms or risk factors identified. Fall Risk No fall in past 12 months (0 pts). IV access (20 points). Ambulatory Aid- None/Bed Rest/Nurse Assist (0 pts). Gait- Impaired (20 pts.). Mental Status- Overestimates/Forgets Limitations (15 pts.). Total Ware Fall Scale indicates High Risk Score (45 or more points). Family Present and informed to notify staff if the need to leave the bedside. Assessment: 00:15 General: Appears obese. Neuro: Level of Consciousness is awake, lethargic, Oriented to la1 person. Cardiovascular: Capillary refill < 3 seconds Patient's skin is warm and dry. Cardiovascular: Heart tones S1 S2 present. Respiratory: Airway is patent Respiratory effort is even, unlabored, Respiratory pattern is regular, symmetrical, Breath sounds are clear bilaterally. GI: Abdomen is non-distended, obese, Bowel sounds present X 4 quads. Abd is soft and non tender X 4 quads. : No signs and/or symptoms were reported regarding the genitourinary system. 01:12 Reassessment: Patient appears in no apparent distress at this time. No changes from la1 previously documented assessment. Patient and/or family updated on plan of care and expected duration. Pain level reassessed. 01:16 Reassessment: No changes from previously documented assessment. [phone] la1 Ralf SAWYER-daughter. 02:08 Reassessment: Pt awake, alert, oriented x1, verbalizes understanding that he is being la1 admitted to hospital, able to drink lactulose PO. Vital Signs: 08/22 22:21 BP 118 / 54; Pulse 77; Resp 18; Temp 100.1; Pulse Ox 99% on R/A; ca1 08/23 00:15 BP 125 / 75; Pulse 92; Resp 18; Pulse Ox 98% on R/A; la1 01:09 BP 107 / 58; Pulse 75; Resp 18; Pulse Ox 98% on R/A; la1 02:33 BP 108 / 76; Pulse 76; Resp 18; Temp 98.0(O); Pulse Ox 98% on R/A; la1 ED Course: 08/22 22:14 Patient arrived in ED. am2 22:15 Toi Choi MD is Attending Physician. tw4 22:21 Arm band placed on right wrist. EKG completed in triage. Results shown to MD. ca1 22:28 Triage completed. ca1 23:01 XRAY Chest (1 view) In Process Unspecified. EDMS 08/23 00:14 Gilles Douglas, RN is Primary Nurse. la1 00:15 No provider procedures requiring assistance completed. Inserted saline lock: 18 gauge la1 in left antecubital area, using aseptic technique. Blood collected. 00:16 CT Head Brain wo Cont In Process Unspecified. EDMS 00:17 Placed in gown. Bed in low position. Call light in reach. quality assurance monitor chassis on. Pulse ox la1 on. NIBP on. 01:14 Helen Wheeler MD is Hospitalizing Provider. tw4 03:26 Patient admitted, IV remains in place. bb Administered Medications: 02:04 Drug: Lactulose 30 grams Volume: 45 ml; Route: PO; la1 02:10 Follow up: Response: No adverse reaction la1 Outcome: 01:16 Decision to Hospitalize by Provider. tw4 03:25 Admitted to Tele accompanied by tech, via stretcher, room 402, with chart, Report bb called to Effie Lei by Gilles Aguero RN 03:25 Condition: stable 03:25 Instructed on the need for admit. 03:26 Patient left the ED. bb Signatures: Dispatcher [employer] EDMS Emma Singer RN RN bb Gilles Douglas RN RN la1 Mavis Cuadra Terrence, MD MD tw4 Missy Schwartz RN RN ca1 Corrections: (The following items were deleted from the chart) 01:19 01:16 Reassessment: No changes from previously documented assessment. [phone] la1 Ralf SAWYER-daughter la1
[2018-08-23] MEDS ORDERED: LACTULOSE 20 GM/30 ML UCUP ONE (02:12)
--- NOTE | 2018-08-23 02:29 | P.HP ---
Certification for Inpatient Patient admitted to: Inpatient With expected LOS: >2 Midnights Practitioner: I am a practitioner with admitting privileges, knowledge of patient current condition, hospital course, and medical plan of care. Services: Services provided to patient in accordance with Admission requirements found in Title 42 Section 412.3 of the Code of Federal Regulations Patient History Date of Service: 08/23/18 Reason for admission: hepatic encephalopathy History of Present Illness: Mr Arambula is a 63 years old male with history of DM II, HTN, pacemaker, obesity , liver cirrhosis who was recently admitted to the hospital due to hypotension, came to ED because altered mental status. According to his family member, the patient had a family trip, and he decided to do not bring his lactulose to avoid recurrent bowel movements, last time he took lactulose was 3 days ago. Gradually the patient was decreasing hin mental status. Since last night, the patient was very difficult to awake. Family says that the last time the patient had similar symptoms was when his ammonina was elevated. No history of fever or chills. initial temp was 100.1F, subsequent temp control was 98.5 F without received medication. Lab work shows normal WBC count, UA unremarkable, ammonia level 98, CXR without obvious acute infiltrate. Allergies No Known Allergies Allergy (Verified 08/12/18 22:52) Home medications list reviewed: Yes Home Medications: Amiodarone HCl [Cordarone*] 0.5 tab PO BID 08/13/18 Duloxetine [Cymbalta *] 40 mg PO DAILY 08/13/18 Gabapentin 100 mg PO TID 08/13/18 Hydrocodone 10/APAP 325 [[place] 10/325*] 1 tab PO Q6H PRN 08/13/18 Iron 30 mg PO DAILY 08/13/18 Lactulose [Cephulac*] 30 mg PO TID 08/13/18 Polyethylene Glycol 3350 [Miralax] 1 packet PO TID 08/13/18 Rivaroxaban [Xarelto*] 20 mg PO DAILY 08/13/18 Furosemide [Lasix*] 20 mg PO BID #60 tab 08/16/18 Spironolactone [Aldactone*] 25 mg PO BID #60 tab 08/16/18 - Past Medical/Surgical History Diabetic: Yes -: Cirrhosis -: Type 2 diabetes -: Pacemaker -: HTN -: Chronic Pain -: Frequent Falls -: Femur Sx -: Knee Sx -: Appendectomy -: Back Sx -: Shoulder Sx - Family History Family History: Reviewed- Non-Contributory - Social History Smoking Status: Never smoker Alcohol use: No CD- Drugs: No Place of Residence: Home Review of Systems 10-point ROS is otherwise unremarkable Physical Examination - Physical Exam General: In no apparent distress, Other (obtunded, but easy to arouse) HEENT: Atraumatic, PERRLA, Mucous membr. moist/pink, EOMI, Sclerae nonicteric Neck: Supple, 2+ carotid pulse no bruit, No LAD, Without JVD or thyroid abnormality Respiratory: Clear to auscultation bilaterally, Normal air movement Cardiovascular: Regular rate/rhythm, Normal S1 S2 Gastrointestinal: Normal bowel sounds, No tenderness Musculoskeletal: No tenderness Integumentary: No rashes Neurological: Normal strength at 5/5 x4 extr, Normal tone, Normal affect Lymphatics: No axilla or inguinal lymphadenopathy - Studies Laboratory Data (last 24 hrs) 08/23/18 00:09: PT 34.0 H, INR 3.01 08/23/18 00:09: WBC 5.5 D, Hgb 11.1 L, Hct 34.1 L D, Plt Count 212 08/23/18 00:09: Sodium 138, Potassium 4.0, BUN 24 H, Creatinine 1.57 H, Glucose 135 H, Magnesium 2.0, Total Bilirubin 2.7 H, AST 52 H, ALT 49, Alkaline Phosphatase 64 Assessment and Plan - Problems (Diagnosis) (1) Hepatic encephalopathy Current Visit: Yes Status: Acute (2) Diabetes mellitus Current Visit: Yes Status: Acute Qualifiers: Diabetes mellitus type: type 2 Diabetes mellitus nursing home insulin use: with termination clerk use Diabetes mellitus complication status: with unspecified complications Qualified Code(s): E11.8 - Type 2 diabetes mellitus with unspecified complications; Z79.4 - retirement (current) use of insulin (3) Liver cirrhosis Current Visit: No Status: Acute Qualifiers: Hepatic cirrhosis type: unspecified hepatic cirrhosis Ascites presence: unspecified Qualified Code(s): K74.60 - Unspecified cirrhosis of liver (4) Pacemaker Current Visit: Yes Status: Acute (5) Acute kidney injury superimposed on CKD Current Visit: Yes Status: Acute - Plan Admit the patient due to hepatic encephalopathy. Will resume lactulose, add Rifaximin. Check HgbA1c, the patient has documented history of DM but in not on any medication. Fall precautions. Will monitor his temp, he possibly had a wrong high temp reading at presentation. Lactate and procalcitonin pending. - Advance Directives Does patient have a Living Will: Yes Does patient have a Durable POA for Healthcare: Yes - Code Status/Comfort Care Code Status Assessed: Yes Code Status: Full Code
[2018-08-23] MEDS ORDERED: GLUCAGON 1 MG/VIAL IM PRN (03:37)
[2018-08-23] MEDS ORDERED: ONDANSETRON 4 MG/2 ML VIAL IV PRN (03:37)
[2018-08-23] MEDS ORDERED: D50W 25 GM/50 ML SYRINGE IV PRN (03:37)
[2018-08-23] MEDS: NA CHLORIDE 0.9% 1,000 ML IV SCH ×3 (06:13→20:12)
[2018-08-23] MEDS: INSULIN -REGULAR HUMAN 50 UNIT/0.5 ML ML SQ SCH ×4 (07:30→20:11)
--- NOTE | 2018-08-23 08:25 | RAD REPORT ---
EXAM DESCRIPTION: RAD - Chest Single View - 08/22/2018 11:00 pm CLINICAL HISTORY: Cough, altered mental status COMPARISON: August 12 TECHNIQUE: AP portable chest image was obtained 2237 hours . FINDINGS: No focal lung parenchymal process. Lung markings are similar to comparison. No failure or volume overload. Heart and vasculature are normal. No measurable pleural effusion and no pneumothorax. No acute bony abnormality seen. No acute aortic findings suspected. IMPRESSION: No acute cardiopulmonary process. No significant interval change.
--- NOTE | 2018-08-23 08:47 | EKG ---
Test Date: 2018-08-22 Test Time: 22:26:20 Mounter: VERONICA MEASUREMENT RESULTS: Intervals: Rate: 87 MA: 280 QRSD: 200 QT: 530 QTc: 637 [place]: P: -3 MA: 280 QRS: -89 T: 81 INTERPRETIVE STATEMENTS: Atrial-sensed ventricular-paced rhythm tracking Sinus rhythm with long AV delay Abnormal ECG Compared to ECG 08/12/2018 15:33:58 no significant change from previous ECG Electronically Signed On 08-23-18 08:47:03 CDT by Joni Brown
[2018-08-23] MEDS: LACTULOSE 20 GM/30 ML UCUP PO SCH ×3 (09:16→20:10)
--- NOTE | 2018-08-23 12:14 | RAD REPORT ---
EXAM DESCRIPTION: CT - Head Brain Wo Cont - 08/23/2018 6:37 am CLINICAL HISTORY: 63 years Male DECLINING STATE COMPARISON: None TECHNIQUE: Contiguous axial images of the brain were obtained without the administration of intraven ous contrast.This exam was performed according to our departmental dose-optimization program which in cludes use of Automated Exposure Control, adjustment of the mA and/or kV according to patient size an d/or use of iterative reconstruction technique. FINDINGS: Brain: No acute intracranial hemorrhage. No extra-axial collection. No mass effect or bartolo iation. Mild prominence of the sulci and cisterns Confluent periventricular and subcortical white m atter hypodensity is noted. Ventricles: Within normal limits in size. Globes and orbits: No acute abnormality. Prior cataract surgery. Bones: No acute osseous finding. Paranasal sinuses: Trace mucosal thickening of the ethmoid. Rightward deviation of the bony nasal sep latisha. No air-fluid level. Mastoid air cells: Well pneumatized.. Soft tissues: Within normal limits Manager Continuous Improvement view shows no additional significant finding IMPRESSION: No acute intracranial hemorrhage or herniation. Mild cerebral volume loss and chronic small vessel ischemic changes. If persistent clinical concern f or acute ischemia, consider MRI brain without contrast for further evaluation. Mild paranasal sinus disease. Electronically signed by: Alen Forte DO 08/23/2018 12:19 AM CDT Due to temporary technical issues with the PACS/Fluency reporting system, reports are being signed by the in house radiologist as a courtesy to ensure prompt reporting. The interpreting radiologist is f ully responsible for the content of the report.
[2018-08-23] MEDS: Rifaximin 550 MG Tab PO SCH ×2 (13:11→20:10)
--- NOTE | 2018-08-23 18:08 | PN ---
Date of Progress Note: 08/23/2018 code status full Subjective: The patient seen and examined, chart reviewed and case discussed with RN. The patient denies any specific complaints. Seems to be more awake and alert today. No family at the bedside. Medications: List reviewed. Physical Examination: Vital Signs: Temperature 98.1, heart rate 95, blood pressure 120/72, respirations 16, O2 98% on room air. General: Awake, alert, oriented x3. Elderly male, obese, BMI 37. Ill- appearing. CV: S1, S2. Regular rate and rhythm. Peripheral pulses present. Respiratory: Moving air well bilaterally. No wheezing or stridor. Gastrointestinal: Abdomen is soft, nontender. Mild distention. Bowel sounds positive. Extremities: No clubbing, cyanosis. The patient has pedal edema. Neuro: Cranial nerves 2 through 12 intact grossly. No focal neurological deficit. Speech is normal. Laboratory Data: Sodium 138, potassium 4, chloride 102, CO2 25, BUN 24, creatinine 1.57, lactate 2.9. Ammonia 98. Procalcitonin less than 0.05. WBC 5.5, H and H 11.1 and 34.1, platelets 212. CT scan of the head shows no acute intracranial hemorrhage or herniation, chronic small vessel ischemic changes present. Mild paranasal sinus disease. Chest x-ray shows no acute cardiopulmonary process. No significant interval change. Assessment: 1. Hepatic encephalopathy, acute. Ammonia level is elevated. We will continue lactulose and monitor. Improving. 2. Diabetes mellitus type 2 with long-term use of insulin with hyperglycemia. We will continue sliding scale insulin and monitor Accu-Cheks. 3. Liver cirrhosis. Mild ascites at this time. No hepatic coma. 4. Status post pacemaker. 5. Acute kidney injury. Baseline creatinine was normal on previous admission. We will continue with IV fluids and monitor gentle IV fluid hydration due to cirrhosis. 6. Obesity, body mass index 37. 7. Essential hypertension. We will resume home medications as appropriate. 8. Generalized weakness, disuse myopathy. We will obtain PT and OT consultation. 9. Deep vein thrombosis prophylaxis, sequential compression device. The patient's INR is 3, likely related to his hepatic disease. 10. Metabolic acidosis. Lactate level is 2.9. 11. Hypochromic microcytic anemia, likely anemia of iron deficiency. Plan: We will continue to monitor. The patient will benefit from group home facility. We will discuss with Case Management. EB Voice ID: [id number] Report ID: [id number] MTDCliff
[2018-08-24 06:06] LABS: Absolute Lymphocytes (CBC) 2.2 K/uL (0.7-4.9); Absolute Monocytes 0.4 K/uL (0.1-1.3); Absolute Neutrophil 2.1 K/uL (1.8-8.0); Basophils % 3.7 % (0-1.3); Eosinophils % 0.9 % (0-4.4); Hematocrit 31.4 % (39.6-49.0); Lymphocytes % 44.8 % (15.3-44.8); MPV 9.7 fL (7.6-11.3); Monocytes % 8.8 % (3.3-12.3); RBC Red Blood Cell Count 3.93 M/uL (4.33-5.43)
[2018-08-24 06:08] LABS: Albumin 2.8 g/dL (3.4-5.0); Bilirubin Total 2.8 mg/dL (0.2-1.0); Potassium 3.8 mmol/L (3.5-5.1); Protein, Total 6.2 g/dL (6.4-8.2)
[2018-08-24] MEDS ORDERED: POTASSIUM 25 MEQ EFFERV TAB PO ONE (06:12)
[2018-08-24] MEDS: INSULIN -REGULAR HUMAN 50 UNIT/0.5 ML ML SQ SCH ×4 (07:30→20:45)
[2018-08-24 08:04] LABS: Anisocytosis 1+; Blood Morphology Comment NOTED (NOT SEEN); Platelet Estimate ADEQ; Urine White Blood Cell Casts OK
[2018-08-24] MEDS ORDERED: ALBUMIN HUMAN 25% 50 ML IV ONE (08:49)
[2018-08-24] MEDS: Rifaximin 550 MG Tab PO SCH ×3 (09:00→20:45)
[2018-08-24] MEDS: LACTULOSE 20 GM/30 ML UCUP PO SCH ×3 (09:20→20:43)
--- NOTE | 2018-08-24 10:59 | P.PN ---
Subjective Date of Service: 08/24/18 Chief Complaint: hepatic encephalopathy Patient seen and examined at bedside with RN. Chart reviewed. Case discussed with nursing staff at bedside. This morning no complaints to offer. Overnight and did well overall as well. Currently alert and oriented x3. Review of Systems 10-point ROS is otherwise unremarkable Physical Examination - Vital Signs Temperature: 97.6 F Blood Pressure: 101/52 Pulse: 76 Respirations: 18 Pulse Ox (%): 94 - Physical Exam General: Alert, In no apparent distress, Oriented x3 HEENT: Atraumatic, PERRLA, EOMI Neck: Supple, JVD not distended Respiratory: Clear to auscultation bilaterally, Normal air movement Cardiovascular: Regular rate/rhythm, Normal S1 S2 Gastrointestinal: Normal bowel sounds, Ascites Musculoskeletal: No tenderness, Swelling (2+ pitting edema bilateral lower extremity) Integumentary: No rashes Neurological: Normal speech, Normal tone, Normal affect Lymphatics: No axilla or inguinal lymphadenopathy - Studies Medications List Reviewed: Yes Assessment And Plan - Current Problems (Diagnosis) (1) Hepatic encephalopathy Current Visit: Yes Status: Acute Plan: Hepatic encephalopathy most likely secondary to liver cirrhosis. -currently on lactulose 20 mg t.i.d. -ammonia level is at 105 this morning. -patient is alert and oriented x3 this morning as well. -will have him work with physical therapy, occupational therapy and speech therapy (2) Lactic acidosis Current Visit: No Status: Acute Plan: Most likely secondary to metabolic acidosis -lactic acid trending down today to 2.1 -no evidence of infection noted. 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 Will most likely need long term facility versus rehab placement on discharge. Will monitor for next 24-48 hr. Discharge Plan: Other Plan to discharge in: Greater than 2 days - Code Status/Comfort Care Code Status Assessed: Yes Critical Care: No
[2018-08-25] MEDS: INSULIN -REGULAR HUMAN 50 UNIT/0.5 ML ML SQ SCH ×4 (07:30→20:25)
[2018-08-25] MEDS ORDERED: POTASSIUM CL SA 10 MEQ TAB PO ONE (09:00)
[2018-08-25] MEDS: LACTULOSE 20 GM/30 ML UCUP PO SCH ×3 (09:02→20:24)
[2018-08-25] MEDS: Rifaximin 550 MG Tab PO SCH ×2 (09:03→20:25)
--- NOTE | 2018-08-25 13:15 | P.PN ---
Subjective Date of Service: 08/25/18 Chief Complaint: hepatic encephalopathy Patient seen and examined at bedside with RN. Chart reviewed. Case discussed with nursing staff at bedside. Denies having BM yesterday. Is currently AAOx3 and awaiting a bed at [facility] Review of Systems 10-point ROS is otherwise unremarkable Physical Examination - Vital Signs Temperature: 97.1 F Blood Pressure: 99/47 Pulse: 75 Respirations: 20 Pulse Ox (%): 96 - Physical Exam General: Alert, In no apparent distress, Oriented x3 Respiratory: Clear to auscultation bilaterally, Normal air movement Cardiovascular: Regular rate/rhythm, Normal S1 S2 Gastrointestinal: Normal bowel sounds, No tenderness Musculoskeletal: No tenderness Integumentary: No rashes Neurological: Normal speech, Normal tone, Normal affect Lymphatics: No axilla or inguinal lymphadenopathy - Studies Medications List Reviewed: Yes Assessment And Plan - Current Problems (Diagnosis) (1) Hepatic encephalopathy Current Visit: Yes Status: Acute Plan: Hepatic encephalopathy most likely secondary to liver cirrhosis. -currently on lactulose 20 mg t.i.d. -ammonia level yesterday was 105. Will recheck Roman AM -patient is alert and oriented x3 this morning as well. -will have him work with physical therapy, occupational therapy and speech therapy (2) Lactic acidosis Current Visit: No Status: Acute Plan: Most likely secondary to metabolic acidosis -lactic acid elevated again today at 3.7. Will repeat in AM -no evidence of infection noted. -will continue to monitor closely (3) Acute kidney injury superimposed on CKD Current Visit: Yes Status: Acute Plan: BUN and creatinine initially elevated most likely secondary to dehydration -currently BUN and creatinine back to baseline -will monitor patient closely here in the hospital -IV albumin x1 (4) Diabetes mellitus Current Visit: Yes Status: Chronic Qualifiers: Diabetes mellitus type: type 2 Diabetes mellitus custodial insulin use: with custodial use Diabetes mellitus complication status: with unspecified complications Qualified Code(s): E11.8 - Type 2 diabetes mellitus with unspecified complications; Z79.4 - half-way (current) use of insulin (5) Liver cirrhosis Current Visit: No Status: Chronic Qualifiers: Hepatic cirrhosis type: unspecified hepatic cirrhosis Ascites presence: unspecified Qualified Code(s): K74.60 - Unspecified cirrhosis of liver - Plan Patient is currently pending clinical improvement at this time. Will most likely need assisted facility versus rehab placement on discharge. Will monitor for next 24-48 hr. Discharge Plan: Other Plan to discharge in: Greater than 2 days - Code Status/Comfort Care Code Status Assessed: Yes Critical Care: No
[2018-08-25] MEDS: GABAPENTIN 100 MG CAP PO SCH ×2 (13:26→20:24)
[2018-08-25] MEDS: FUROSEMIDE 40 MG TABLET PO SCH (16:40)
[2018-08-25] MEDS: RIVAROXABAN 20 MG TABLET PO SCH (16:41)
[2018-08-25] MEDS ORDERED: LACTULOSE 20 GM/30 ML UCUP PO ONE (17:00)
[2018-08-25] MEDS ORDERED: NA CHLORIDE 0.9% 50 ML ONE (17:13)
[2018-08-25] MEDS: SPIRONOLACTONE 100 MG TAB PO SCH (20:24)
[2018-08-25] MEDS: AMIODARONE HCL 200 MG TAB PO SCH (20:24)
[2018-08-25] MEDS: FERROUS SULFATE 325 MG TAB PO SCH (20:27)
[2018-08-26 04:23] LABS: Absolute Lymphocytes (CBC) 2.3 K/uL (0.7-4.9); Absolute Monocytes 0.5 K/uL (0.1-1.3); Absolute Neutrophil 2.3 K/uL (1.8-8.0); Eosinophils % 1.3 % (0-4.4); Hematocrit 32.4 % (39.6-49.0); Lymphocytes % 43.3 % (15.3-44.8); MPV 9.6 fL (7.6-11.3); Monocytes % 9.1 % (3.3-12.3); RBC Red Blood Cell Count 4.02 M/uL (4.33-5.43)
[2018-08-26 04:33] LABS: Albumin 3.1 g/dL (3.4-5.0); Bilirubin Total 2.5 mg/dL (0.2-1.0); Potassium 4.1 mmol/L (3.5-5.1); Protein, Total 6.3 g/dL (6.4-8.2)
[2018-08-26 04:36] LABS: Basophils % 3.1 % (0-1.3)
[2018-08-26] MEDS: INSULIN -REGULAR HUMAN 50 UNIT/0.5 ML ML SQ SCH ×4 (07:30→21:00)
[2018-08-26] MEDS: Rifaximin 550 MG Tab PO SCH ×2 (09:00→21:00)
[2018-08-26] MEDS: SPIRONOLACTONE 100 MG TAB PO SCH ×2 (09:16→22:49)
[2018-08-26] MEDS: GABAPENTIN 100 MG CAP PO SCH ×3 (09:16→22:49)
[2018-08-26] MEDS: DULOXETINE 20 MG CAP PO SCH (09:16)
[2018-08-26] MEDS: FERROUS SULFATE 325 MG TAB PO SCH (09:16)
[2018-08-26] MEDS: AMIODARONE HCL 200 MG TAB PO SCH ×2 (09:17→22:49)
[2018-08-26] MEDS: FUROSEMIDE 40 MG TABLET PO SCH ×2 (09:18→17:55)
[2018-08-26] MEDS: LACTULOSE 20 GM/30 ML UCUP PO SCH ×3 (09:19→22:48)
--- NOTE | 2018-08-26 11:30 | P.PN ---
Subjective Date of Service: 08/26/18 Chief Complaint: hepatic encephalopathy Patient seen and examined at bedside with RN. Chart reviewed. Case discussed with nursing staff at bedside. BM yesterday AM. Is currently AAOx3 and awaiting a bed at SNF. Working with PT. Review of Systems 10-point ROS is otherwise unremarkable Physical Examination - Vital Signs Temperature: 97.0 F Blood Pressure: 125/76 Pulse: 77 Respirations: 18 Pulse Ox (%): 94 - Physical Exam General: Alert, In no apparent distress, Oriented x3 HEENT: Atraumatic, PERRLA, EOMI Neck: Supple, JVD not distended Respiratory: Clear to auscultation bilaterally, Normal air movement Cardiovascular: Regular rate/rhythm, Normal S1 S2 Gastrointestinal: Normal bowel sounds, No tenderness Musculoskeletal: No tenderness Integumentary: No rashes Neurological: Normal speech, Normal tone, Normal affect Lymphatics: No axilla or inguinal lymphadenopathy - Studies Medications List Reviewed: Yes Assessment And Plan - Current Problems (Diagnosis) (1) Hepatic encephalopathy Current Visit: Yes Status: Acute Plan: Hepatic encephalopathy most likely secondary to liver cirrhosis. Resolved now -currently on lactulose 20 mg t.i.d. -patient is alert and oriented x3 this morning as well. -Working with physical therapy, occupational therapy and speech therapy -Awaiting SNF placement (2) Lactic acidosis Current Visit: No Status: Acute Plan: Most likely secondary to metabolic acidosis -lactic acid back to baseline -no evidence of infection noted. -will continue to monitor closely (3) Acute kidney injury superimposed on CKD Current Visit: Yes Status: Acute Plan: BUN and creatinine initially elevated most likely secondary to dehydration -currently BUN and creatinine back to baseline -will monitor patient closely here in the hospital -IV albumin x1 (4) Diabetes mellitus Current Visit: Yes Status: Chronic Qualifiers: Diabetes mellitus type: type 2 Diabetes mellitus buttermaker continuous churn insulin use: with buttermaker continuous churn use Diabetes mellitus complication status: with unspecified complications Qualified Code(s): E11.8 - Type 2 diabetes mellitus with unspecified complications; Z79.4 - regional 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 Will most likely need residential facility versus rehab placement on discharge. Will monitor for next 24-48 hr. Discharge Plan: Other Plan to discharge in: 48 Hours - Code Status/Comfort Care Code Status Assessed: Yes Critical Care: No
[2018-08-26] MEDS: RIVAROXABAN 20 MG TABLET PO SCH (17:55)
[2018-08-27 06:10] LABS: Absolute Lymphocytes (CBC) 2.7 K/uL (0.7-4.9); Absolute Monocytes 0.5 K/uL (0.1-1.3); Basophils % 0.8 % (0-1.3); Eosinophils % 1.6 % (0-4.4); Hematocrit 32.4 % (39.6-49.0); Lymphocytes % 41.6 % (15.3-44.8); MPV 9.6 fL (7.6-11.3); Monocytes % 8.3 % (3.3-12.3); RBC Red Blood Cell Count 4.06 M/uL (4.33-5.43)
[2018-08-27] MEDS: INSULIN -REGULAR HUMAN 50 UNIT/0.5 ML ML SQ SCH ×2 (07:30→11:30)
[2018-08-27] MEDS: GABAPENTIN 100 MG CAP PO SCH (08:20)
[2018-08-27] MEDS: FERROUS SULFATE 325 MG TAB PO SCH (08:23)
[2018-08-27] MEDS: LACTULOSE 20 GM/30 ML UCUP PO SCH (08:23)
[2018-08-27] MEDS: AMIODARONE HCL 200 MG TAB PO SCH (08:24)
[2018-08-27] MEDS: DULOXETINE 20 MG CAP PO SCH (08:24)
[2018-08-27] MEDS: FUROSEMIDE 40 MG TABLET PO SCH (08:29)
[2018-08-27] MEDS: SPIRONOLACTONE 100 MG TAB PO SCH (08:29)
[2018-08-27] MEDS: Rifaximin 550 MG Tab PO SCH (08:30)
[2018-08-27 08:36] LABS: Albumin 3.1 g/dL (3.4-5.0); Bilirubin Total 2.1 mg/dL (0.2-1.0); Potassium 4.1 mmol/L (3.5-5.1); Protein, Total 6.4 g/dL (6.4-8.2)
[2018-08-27] MEDS ORDERED: FLEET ENEMA ADULT PR ONE (10:00)
--- NOTE | 2018-08-27 14:18 | P.DS ---
Admission Date: 08/23/18 Discharge Date: 08/27/18 Disposition: TRANSFER TO LONG-TERM Discharge Condition: FAIR Reason for Admission: hepatic encephalopathy - Problems (1) Hepatic encephalopathy Current Visit: Yes Status: Acute (2) Lactic acidosis Current Visit: No Status: Acute (3) Acute kidney injury superimposed on CKD Current Visit: Yes Status: Acute (4) Diabetes mellitus Current Visit: Yes Status: Chronic Qualifiers: Diabetes mellitus type: type 2 Diabetes mellitus fdc insulin use: with fdc use Diabetes mellitus complication status: with unspecified complications Qualified Code(s): E11.8 - Type 2 diabetes mellitus with unspecified complications; 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 According to his family member, the patient had a family trip, and he decided to do not bring his lactulose to avoid recurrent bowel movements, last time he took lactulose was 3 days ago. Gradually the patient was decreasing hin mental status. Since last night, the patient was very difficult to awake. Family says that the last time the patient had similar symptoms was when his ammonina was elevated. No history of fever or chills. initial temp was 100.1F, subsequent temp control was 98.5 F without received medication. Lab work shows normal WBC count, UA unremarkable, ammonia level 98, CXR without obvious acute infiltrate. Hospital Course: overall during the hospital stay pt remained stable. Pt was initially admitted to the hospital for hepatic Encephalopathy. Pt was Started on lactulose and had marked improved in his mentation. Pt was continued on lactulose and had BM. Pt remained AAOx3 after the initial lactulose. pt however was lethargic in the beginning but improved during the hospital. PT was consulted and pt worked with PT. SNF consult was placed for pt and pt was accepted at [facility] for longterm and PT and thus was discharged there when he was medically cleared. Vital Signs/Physical Exam: Temp Pulse Resp BP Pulse Ox 97.9 F 83 16 110/61 99 08/27/18 12:00 08/27/18 12:00 08/27/18 12:00 08/27/18 12:00 08/27/18 12:00 General: Alert, In no apparent distress HEENT: Atraumatic, PERRLA, EOMI Neck: Supple, JVD not distended Respiratory: Clear to auscultation bilaterally, Normal air movement Cardiovascular: Regular rate/rhythm, Normal S1 S2 Gastrointestinal: Normal bowel sounds, No tenderness Musculoskeletal: No tenderness Integumentary: No rashes Neurological: Normal speech, Normal tone, Normal affect Lymphatics: No axilla or inguinal lymphadenopathy Laboratory Data at Discharge: WBC 6.4 K/uL (4.3-10.9) D 08/27/18 05:50 Hgb 10.4 g/dL (13.6-17.9) L 08/27/18 05:50 Hct 32.4 % (39.6-49.0) L 08/27/18 05:50 Plt Count 163 K/uL (152-406) 08/27/18 05:50 PT 34.0 SECONDS (9.5-12.5) H 08/23/18 00:09 INR 3.01 08/23/18 00:09 Sodium 136 mmol/L (136-145) 08/27/18 07:41 Potassium 4.1 mmol/L (3.5-5.1) 08/27/18 07:41 BUN 14 mg/dL (7-18) 08/27/18 07:41 Creatinine 0.99 mg/dL (0.55-1.3) 08/27/18 07:41 Glucose 94 mg/dL (74-106) 08/27/18 07:41 Magnesium 2.0 mg/dL (1.8-2.4) 08/23/18 00:09 Total Bilirubin 2.1 mg/dL (0.2-1.0) H 08/27/18 07:41 AST 44 U/L (15-37) H 08/27/18 07:41 ALT 47 U/L (12-78) 08/27/18 07:41 Alkaline Phosphatase 56 U/L (45-117) 08/27/18 07:41 Home Medications: Amiodarone HCl [Cordarone*] 0.5 tab PO BID 08/13/18 Duloxetine [Cymbalta *] 40 mg PO DAILY 08/13/18 Gabapentin 100 mg PO TID 08/13/18 Hydrocodone 10/APAP 325 [[place] 10/325*] 1 tab PO Q6H PRN 08/13/18 Iron 30 mg PO DAILY 08/13/18 Lactulose [Cephulac*] 30 mg PO TID 08/13/18 Polyethylene Glycol 3350 [Miralax] 1 packet PO TID 08/13/18 Rivaroxaban [Xarelto*] 20 mg PO DAILY 08/13/18 Furosemide [Lasix*] 40 mg PO BID 08/25/18 Metformin ER [Glucophage ER*] 500 mg PO DAILY 08/25/18 Spironolactone [Aldactone*] 100 mg PO BID 08/25/18 Patient Discharge Instructions: Please f.u with PCP and GI in 1 to 2 week post discharge. No new medication Diet: Regular Activity: Ad lyn Followup: Severo Suarez MD [ASSOCIATE-ACTIVE - CAN ADMIT] - (call to schedule appointment)
== END 2018-08-27 14:03 | DRG 442 ==
LOC: ER 22:05 → ERHOLD 08-23 02:15 → 4TH 08-23 03:05
PROVIDERS: ADMIT Internal Medicine; ATTEND Family Medicine
DX: K72.90 Hepatic failure, unspecified without coma (principal); E87.2 Acidosis; N17.9 Acute kidney failure, unspecified; E72.20 Disorder of urea cycle metabolism, unspecified; R18.8 Other ascites; K74.60 Unspecified cirrhosis of liver; Z95.0 Presence of cardiac pacemaker; E66.9 Obesity, unspecified; I95.9 Hypotension, unspecified; I10 Essential (primary) hypertension; E11.65 Type 2 diabetes mellitus with hyperglycemia; Z79.4 Long term (current) use of insulin; Z68.37 Body mass index [BMI] 37.0-37.9, adult; R53.1 Weakness; G72.89 Other specified myopathies; D50.9 Iron deficiency anemia, unspecified; E86.0 Dehydration
CPT/HCPCS: 36415; 70450; 71045; 80048; 80053; 80076; 81003; 82140; 82962; 83605; 83735; 83880; 84145; 84484; 85025; 85610; 87040; 87086; 87088; 93005; 97110; 97116; 97163; 97530; 99285; J7030; P9047

== ENCOUNTER 2018-09-10 11:32 | Inpatient (IN) | payer OTHER ==
--- NOTE | 2018-09-10 12:14 | RAD REPORT ---
EXAM DESCRIPTION: CT - Head Brain Wo Cont - 09/10/2018 12:03 pm CLINICAL HISTORY: Transient alteration of awareness, cirrhosis, hepatic failure COMPARISON: CT head August 22, 2018 TECHNIQUE: Axial 5 mm thick images of the head were obtained without IV contrast. All CT scans are performed using dose optimization technique as appropriate and may include automated exposure control or mA/KV adjustment according to patient size. FINDINGS: No intracranial hemorrhage, mass, edema or shift of mid-line structures. No acute infarcti on changes seen. No significant atrophy changes. Chronic ischemic changes minimal. Ventricles are nor mal. Mastoid air cells and visualized portions of the paranasal sinuses are clear. No acute bony findings. IMPRESSION: Negative non-contrast CT head examination. No significant change from August 22
[2018-09-10] MEDS ORDERED: CEFTRIAXONE/SWI 1gm 1 GM/10 ML SYR ONE (12:53)
[2018-09-10] MEDS ORDERED: NA CHLORIDE 0.9% 2,000 ML ONE (12:54)
[2018-09-10 12:55] LABS: Absolute Lymphocytes (CBC) 1.7 K/uL (0.7-4.9); Absolute Monocytes 0.6 K/uL (0.1-1.3); Absolute Neutrophil 3.1 K/uL (1.8-8.0); Basophils % 1.4 % (0-1.3); Eosinophils % 0.2 % (0-4.4); Lymphocytes % 31.1 % (15.3-44.8); MPV 9.5 fL (7.6-11.3); Monocytes % 10.4 % (3.3-12.3); RBC Red Blood Cell Count 4.43 M/uL (4.33-5.43)
--- NOTE | 2018-09-10 12:56 | RAD REPORT ---
EXAM DESCRIPTION: RAD - Chest Single View - 09/10/2018 12:45 pm CLINICAL HISTORY: Increasing altered mental status, shortness of breath COMPARISON: August 22 TECHNIQUE: AP portable chest image was obtained 1240 hours . FINDINGS: Lung volumes are very low accentuating existing interstitial lung disease. No peripheral m ass or consolidation seen. Heart size and vasculature are prominent. Mild CHF/ volume overload is jose alfredo pected accentuated by the poor inspiratory effort. Pacemaker remains in place. No measurable pleural effusion and no pneumothorax. No acute bony abnormality seen. No acute aortic findings suspected. IMPRESSION: Suspected mild CHF/volume overload accentuated by shallow inspiration.
[2018-09-10 13:19] LABS: Albumin 3.3 g/dL (3.4-5.0); Bilirubin Total 3.8 mg/dL (0.2-1.0); CKMB Creatine Kinase MB 2.9 ng/mL (0.3-3.6); Potassium 3.8 mmol/L (3.5-5.1); Protein, Total 6.8 g/dL (6.4-8.2); Protime INR 4.5; Troponin (Emerg Dept Use Only) 0.03 ng/mL (0.0-0.045)
[2018-09-10 13:20] LABS: Urine Blood NEGATIVE (NEG); Urine Glucose NEGATIVE (NEG); Urine Protein TRACE (NEG)
[2018-09-10 13:22] LABS: Urine Bacteria 20-50 /HPF (NONE SEEN); Urine Culture Reflex Order REFLEXED; Urine RBC <5 /HPF (NONE SEEN)
--- NOTE | 2018-09-10 15:09 | EDPHYS ---
Physician Documentation [facility] Name: Gibran Arambula Age: 63 yrs Sex: Male : 1955 Arrival Date: 09/10/2018 Time: 11:40 Bed 3 Private MD: ED Physician Osmin Michaels HPI: 09/10 18:30 This 63 yrs old Male presents to ER via EMS with complaints of Altered Mental kdr Status. 18:30 The patient presents with decreased responsiveness. Onset: The symptoms/episode kdr began/occurred gradually, 4 day(s) ago. Possible causes: sepsis, Cirrhosis/Hepatic Encepaholpathy. Current symptoms: In the emergency department the patient's symptoms are unchanged from the initial presentation. Historical: - Allergies: 11:47 No Known Allergies; bp - PMHx: 11:47 Cirrhosis; Diabetes - NIDDM; Hypertension; Pacemaker; HEPATIC FAILURE; Chronic pain; bp ATRIAL FLUTTER; CHF; - Immunization history:: Adult Immunizations up to date. - Social history:: Smoking status: Patient/guardian denies using tobacco. - Ebola Screening: : Patient negative for fever greater than or equal to 101.5 degrees Fahrenheit, and additional compatible Ebola Virus Disease symptoms Patient denies exposure to infectious person Patient denies travel to an Ebola-affected area in the 21 days before illness onset No symptoms or risks identified at this time. ROS: 18:34 Constitutional: Unable to assess kdr 18:34 Unable to obtain ROS due to obtunded state. Exam: 18:34 Constitutional: This is a well developed, well nourished obese patient who is obtunded kdr Head/Face: Normocephalic, atraumatic. Eyes: Pupils equal round and reactive to light, extra-ocular motions intact. Lids and lashes normal. Conjunctiva and sclera are non-icteric and not injected. Cornea within normal limits. Periorbital areas with no swelling, redness, or edema. Neck: Trachea midline, no thyromegaly or masses palpated, and no cervical lymphadenopathy. Supple, full range of motion without nuchal rigidity, or vertebral point tenderness. No Meningismus. Chest/axilla: Normal chest wall appearance and motion. Nontender with no deformity. No lesions are appreciated. Cardiovascular: Regular rate and rhythm with a normal S1 and S2. No gallops, murmurs, or rubs. Normal PMI, no JVD. No pulse deficits. Respiratory: Lungs have equal breath sounds bilaterally, clear to auscultation and percussion. No rales, rhonchi or wheezes noted. No increased work of breathing, no retractions or nasal flaring. Abdomen/GI: Obese Skin: Warm, dry with normal turgor. Normal color with no rashes, no lesions, and no evidence of cellulitis. MS/ Extremity: Pulses equal, no cyanosis. Neurovascular intact. Full, normal range of motion. Vital Signs: 11:47 BP 98 / 34; Pulse 72; Resp 14; Temp 98; Pulse Ox 100% on R/A; Weight 136.08 kg; bp 12:15 BP 90 / 56; Pulse 70; Resp 14; Pulse Ox 100% on R/A; bp 13:00 BP 96 / 72; Pulse 64; Resp 20; Pulse Ox 100% ; bp 14:00 BP 91 / 54; Pulse 60; Resp 13; Pulse Ox 100% ; bp 15:00 BP 94 / 62; Pulse 60; Resp 15; Pulse Ox 100% ; bp 16:00 BP 98 / 49; Pulse 66; Resp 14; Pulse Ox 100% ; bp 17:00 BP 92 / 52; Pulse 70; Resp 14; Pulse Ox 100% ; bp NIH Stroke Scale Scores: 11:47 NIHSS Score: 16 bp MDM: 15:08 Patient medically screened. kdr 18:34 Data reviewed: vital signs, nurses notes, lab test result(s), radiologic studies. kdr 09/10 11:44 Order name: Basic Metabolic Panel; Complete Time: 13:45 [facility] 09/10 11:44 Order name: Blood Culture Adult (2) kdr 09/10 11:44 Order name: CBC with Diff kdr 09/10 11:44 Order name: Ckmb; Complete Time: 13:45 kdr 09/10 11:44 Order name: CPK; Complete Time: 13:45 kdr 09/10 11:44 Order name: Lactate; Complete Time: 13:45 [facility] 09/10 11:44 Order name: LFT's; Complete Time: 13:45 kdr 09/10 11:44 Order name: Lipase; Complete Time: 13:45 [facility] 09/10 11:44 Order name: Procalcitonin; Complete Time: 13:45 kdr 09/10 11:44 Order name: Protime (+inr); Complete Time: 13:45 kdr 09/10 11:44 Order name: Ptt, Activated; Complete Time: 13:45 kdr 09/10 11:44 Order name: Troponin (emerg Dept Use Only); Complete Time: 13:45 kdr 09/10 11:44 Order name: Urine Microscopic Only; Complete Time: 13:45 kdr 09/10 11:44 Order name: AMMONIA; Complete Time: 13:45 kdr 09/10 11:44 Order name: Chest Single View XRAY; Complete Time: 13:45 kdr 09/10 11:44 Order name: Accucheck; Complete Time: 12:22 kdr 09/10 11:44 Order name: Cardiac monitoring; Complete Time: 12:22 kdr 09/10 11:44 Order name: EKG - Nurse/Tech; Complete Time: 12:22 kdr 09/10 11:44 Order name: IV Saline Lock - Large Bore; Complete Time: 12:22 kdr 09/10 11:44 Order name: Labs collected and sent; Complete Time: 12:50 kdr 09/10 11:44 Order name: O2 Per Protocol; Complete Time: 12:22 kdr 09/10 11:44 Order name: O2 Sat Monitoring; Complete Time: 12:50 kdr 09/10 11:44 Order name: CT Head Brain wo Cont; Complete Time: 12:32 kdr 09/10 12:17 Order name: EKG; Complete Time: 12:20 09/10 13:13 Order name: Urine Dipstick--Ancillary (enter results); Complete Time: 13:45 dm5 09/10 13:24 Order name: Urine Culture [facility] 09/10 15:57 Order name: Lactate Sepsis 2 HR Follow-up [facility] 09/10 11:44 Order name: Urine Dipstick-Ancillary (obtain specimen); Complete Time: 13:00 kdr Administered Medications: 12:30 Drug: NS 0.9% (30 ml/kg) 30 ml/kg Route: IV; Rate: bolus; Site: right antecubital; bp 17:07 Follow up: IV Status: Completed infusion; IV Intake: 4000ml bp 12:45 Drug: Rocephin - (cefTRIAXone) 1 grams Route: IVPB; Infused Over: 30 mins; Site: right bp antecubital; 13:15 Follow up: IV Status: Completed infusion bp 17:05 Not Given (Patient Refused; PT UNCOOPERATIVE/COMBATIVE): Lactulose 200 grams CO once; bp dilute with 700 mL of saline, then give by rectal balloon catheter; retain for 30-60 minutes Disposition: 09/10/18 15:08 Hospitalization ordered by Janette Norman for Inpatient Admission. Preliminary diagnosis is Hepatic Encepahalopathy. - Bed requested for Telemetry/MedSurg (Inpatient). - Status is Inpatient Admission. bp - Condition is Serious. - Problem is an acute exacerbation. - Symptoms are unchanged. UTI on Admission? No NIH Stroke Scale - NIH Stroke Score Date: 09/10/2018 Time: 11:47 Total Score = 16 1a. Level of Consciousness (LOC) - 1(Not Alert) 1b. Level of Consciousness (LOC) (Year \T\ Age) - 2(Neither) 1c. LOC Commands (Open \T\ Closes Eyes/South Asian History Professor) - 1(One) 2. Best Gaze (Lateral Gaze Paresis) - 1(Partial gaze palsy) 3. Visual Field Loss - 0(No visual loss) 4. Facial Palsy - 0(Normal) 5a. Left Arm: Motor (10-second hold) - 1(Drift) 5b. Right Arm: Motor (10-second hold) - 1(Drift) 6a. Left Leg: Motor (5-second hold - always test supine) - 1(Drift) 6b. Right Leg: Motor (5-second hold - always test supine) - 1(Drift) 7. Limb Ataxia (finger/nose \T\ heel/roach - test with eyes open) - 2(Present in two limbs) 8. Sensory Loss (pinprick arms/legs/face) - 0(Normal) 9. Best Language: Aphasia (description/naming/reading) - 3(Mute, global aphasia) 10. Dysarthria (speech clarity - read or repeat words) - 2(Severe) 11. Extinction and Inattention (visual/tactile/auditory/spatial/personal) - 0(No abnormality) Initials: bp Signatures: Dispatcher [employer] Effie Altamirano RN RN Osmin Singh MD MD kdr Dung Villanueva RN RN bp Corrections: (The following items were deleted from the chart) 17:00 15:08 Hospitalization Ordered by Janette Norman MD for Inpatient Admission. dw Preliminary diagnosis is Hepatic Encepahalopathy. Bed requested for Telemetry/MedSurg (Inpatient). Status is Inpatient Admission. Condition is Serious. Problem is an acute exacerbation. Symptoms are unchanged. UTI on Admission? No. kdr 17:50 17:00 09/10/2018 15:08 Hospitalization Ordered by Janette Norman MD for Inpatient bp Admission. Preliminary diagnosis is Hepatic Encepahalopathy. Bed requested for Telemetry/MedSurg (Inpatient). Status is Inpatient Admission. Condition is Serious. Problem is an acute exacerbation. Symptoms are unchanged. UTI on Admission? No. dw
--- NOTE | 2018-09-10 15:09 | ER ---
Nurse's Notes [facility] Name: Gibran Arambula Age: 63 yrs Sex: Male : 1955 Arrival Date: 09/10/2018 Time: 11:40 Bed 3 Private MD: Diagnosis: Hepatic Encepahalopathy Presentation: 09/10 11:40 Presenting complaint: EMS states: INCREASING AMS FOR 4 DAYS. Transition of care: bp patient was received from another setting of care ([facility]. Onset of symptoms is unknown. Risk Assessment: Do you want to hurt yourself or someone else? Patient reports no desire to harm self or others. Initial Sepsis Screen: Does the patient meet any 2 criteria? No. Patient's initial sepsis screen is negative. Does the patient have a suspected source of infection? No. Patient's initial sepsis screen is negative. Care prior to arrival: IV initiated. 20 GA, in the left wrist, Glucose check: 166. 11:40 Method Of Arrival: EMS: [facility] bp 11:40 Acuity: FERMIN 2 bp Triage Assessment: 11:47 General: Appears distressed, comfortable, obese, Behavior is drowsy. Pain: Denies pain. bp EENT: No deficits noted. Neuro: Level of Consciousness is obtunded, Oriented to none. Cardiovascular: Rhythm is sinus rhythm. Respiratory: Airway is patent Respiratory effort is even, unlabored, Respiratory pattern is regular, symmetrical. GI: Abdomen is obese. : No deficits noted. No signs and/or symptoms were reported regarding the genitourinary system. Derm: No signs and/or symptoms reported regarding the dermatologic system. Historical: - Allergies: 11:47 No Known Allergies; bp - PMHx: 11:47 Cirrhosis; Diabetes - NIDDM; Hypertension; Pacemaker; HEPATIC FAILURE; Chronic pain; bp ATRIAL FLUTTER; CHF; - Immunization history:: Adult Immunizations up to date. - Social history:: Smoking status: Patient/guardian denies using tobacco. - Ebola Screening: : Patient negative for fever greater than or equal to 101.5 degrees Fahrenheit, and additional compatible Ebola Virus Disease symptoms Patient denies exposure to infectious person Patient denies travel to an Ebola-affected area in the 21 days before illness onset No symptoms or risks identified at this time. Screenin:45 Abuse screen: Denies threats or abuse. Denies injuries from another. Nutritional bp screening: No deficits noted. Tuberculosis screening: No symptoms or risk factors identified. Fall Risk None identified. Assessment: 11:40 General: SEE TRIAGE NOTE. bp 12:37 Reassessment: PT REMAINS OBTUNDED, NO VERBAL RESPONSE. HYPOTENSIVE ON MONITOR. bp 14:30 Reassessment: PT REMAINS HYPOTENSIVE ON MONITOR, ADMIT PENDING. bp 16:00 Reassessment: ATTEMPT TO PLACE RECTAL TUBE. PT UNCOOPERATIVE, COMBATIVE. UNABLE TO bp PLACE. MD NOTIFIED. Vital Signs: 11:47 BP 98 / 34; Pulse 72; Resp 14; Temp 98; Pulse Ox 100% on R/A; Weight 136.08 kg; bp 12:15 BP 90 / 56; Pulse 70; Resp 14; Pulse Ox 100% on R/A; bp 13:00 BP 96 / 72; Pulse 64; Resp 20; Pulse Ox 100% ; bp 14:00 BP 91 / 54; Pulse 60; Resp 13; Pulse Ox 100% ; bp 15:00 BP 94 / 62; Pulse 60; Resp 15; Pulse Ox 100% ; bp 16:00 BP 98 / 49; Pulse 66; Resp 14; Pulse Ox 100% ; bp 17:00 BP 92 / 52; Pulse 70; Resp 14; Pulse Ox 100% ; bp NIH Stroke Scale Scores: 11:47 NIHSS Score: 16 bp ED Course: 11:40 Patient arrived in ED. bp 11:40 Osmin Michaels MD is Attending Physician. kdr 11:45 Triage completed. bp 11:45 Patient has correct armband on for positive identification. Placed in gown. Bed in low bp position. Call light in reach. Side rails up X2. 11:45 Maintain EMS IV. Dressing intact. Good blood return noted. Site clean \T\ dry. Gauge \T\ bp site: 20 GAUGE L WRIST. 11:47 Arm band placed on. EKG completed in triage. Results shown to MD. bp 12:03 CT Head Brain wo Cont In Process Unspecified. EDMS 12:22 Dung Villanueva, TATY is Primary Nurse. bp 12:25 EKG done, by technical support director. reviewed by Osmin Michaels MD. at1 12:36 Inserted saline lock: 22 gauge in right antecubital area, using aseptic technique. bp Blood collected. 12:44 Chest Single View XRAY In Process Unspecified. EDMS 13:00 Spencer cath inserted, using sterile technique, 16 Fr., by farm management agent, balloon inflated, to bp gravity drainage, urine specimen collected. Patient tolerated well. 13:08 Notified ED physician of a critical lab result(s). lactate 2.6. dm5 13:53 Urine Culture Sent. bp 15:07 Janette Norman MD is Hospitalizing Provider. kdr 17:05 No provider procedures requiring assistance completed. Patient admitted, IV remains in bp place. Administered Medications: 12:30 Drug: NS 0.9% (30 ml/kg) 30 ml/kg Route: IV; Rate: bolus; Site: right antecubital; bp 17:07 Follow up: IV Status: Completed infusion; IV Intake: 4000ml bp 12:45 Drug: Rocephin - (cefTRIAXone) 1 grams Route: IVPB; Infused Over: 30 mins; Site: right bp antecubital; 13:15 Follow up: IV Status: Completed infusion bp 17:05 Not Given (Patient Refused; PT UNCOOPERATIVE/COMBATIVE): Lactulose 200 grams MO once; bp dilute with 700 mL of saline, then give by rectal balloon catheter; retain for 30-60 minutes Intake: 17:07 IV: 4000ml; Total: 4000ml. bp Outcome: 15:08 Decision to Hospitalize by Provider. kdr 17:08 Condition: stable bp 17:08 Instructed on the need for admit. 17:50 Patient left the ED. bp NIH Stroke Scale - NIH Stroke Score Date: 09/10/2018 Time: 11:47 Total Score = 16 1a. Level of Consciousness (LOC) - 1(Not Alert) 1b. Level of Consciousness (LOC) (Year \T\ Age) - 2(Neither) 1c. LOC Commands (Open \T\ Closes Eyes/Public Health Epidemiologist) - 1(One) 2. Best Gaze (Lateral Gaze Paresis) - 1(Partial gaze palsy) 3. Visual Field Loss - 0(No visual loss) 4. Facial Palsy - 0(Normal) 5a. Left Arm: Motor (10-second hold) - 1(Drift) 5b. Right Arm: Motor (10-second hold) - 1(Drift) 6a. Left Leg: Motor (5-second hold - always test supine) - 1(Drift) 6b. Right Leg: Motor (5-second hold - always test supine) - 1(Drift) 7. Limb Ataxia (finger/nose \T\ heel/roach - test with eyes open) - 2(Present in two limbs) 8. Sensory Loss (pinprick arms/legs/face) - 0(Normal) 9. Best Language: Aphasia (description/naming/reading) - 3(Mute, global aphasia) 10. Dysarthria (speech clarity - read or repeat words) - 2(Severe) 11. Extinction and Inattention (visual/tactile/auditory/spatial/personal) - 0(No abnormality) Initials: bp Signatures: Dispatcher [employer] Janny Ramirez, RN RN dm5 Osmin Michaels MD MD kdr Gonzales, Amanda, machine coil assembler EKG Tat1 Dung Villanueva, RN RN bp
[2018-09-10] MEDS ORDERED: LACTULOSE 20 GM/30 ML UCUP ONE (15:16)
--- NOTE | 2018-09-10 15:16 | P.HP ---
Certification for Inpatient Patient admitted to: Inpatient Practitioner: I am a practitioner with admitting privileges, knowledge of patient current condition, hospital course, and medical plan of care. Services: Services provided to patient in accordance with Admission requirements found in Title 42 Section 412.3 of the Code of Federal Regulations Patient History Date of Service: 09/10/18 Reason for admission: Altered mental status History of Present Illness: This is a 63-year-old male with a history of diabetes mellitus type 2, hypertension, pacemaker in place, liver cirrhosis admitted from a detention for altered mental status. Unable to get any history from patient. No family at home. Patient is a detention patient. In the ER, he was found to be poorly responsive. He was also slightly hypotensive. He was afebrile, other vital signs were stable and he was 100% on room air. Labs were remarkable for ammonia level of 174, creatinine elevated at 1.46, lactic acid elevated at 2.6 and albumin low at 3.3. Pro calcitonin was negative and other electrolytes were Stable. His chest x-ray was suspicious for volume overload but was without any acute infiltrates. His CT head was negative for any acute abnormalities. At the time of my exam, he was unresponsive. Vital signs were stable. Allergies No Known Allergies Allergy (Verified 08/12/18 22:52) Home Medications: Amiodarone HCl [Cordarone*] 0.5 tab PO BID 08/13/18 Duloxetine [Cymbalta *] 40 mg PO DAILY 08/13/18 Gabapentin 100 mg PO TID 08/13/18 Hydrocodone 10/APAP 325 [Lamont 10/325*] 1 tab PO Q6H PRN 08/13/18 Iron 30 mg PO DAILY 08/13/18 Lactulose [Cephulac*] 30 mg PO TID 08/13/18 Polyethylene Glycol 3350 [Miralax] 1 packet PO TID 08/13/18 Rivaroxaban [Xarelto*] 20 mg PO DAILY 08/13/18 Furosemide [Lasix*] 40 mg PO BID 08/25/18 Metformin ER [Glucophage ER*] 500 mg PO DAILY 08/25/18 Spironolactone [Aldactone*] 100 mg PO BID 08/25/18 - Past Medical/Surgical History Diabetic: Yes -: Cirrhosis -: Type 2 diabetes -: Pacemaker -: HTN -: Chronic Pain -: Frequent Falls -: Femur Sx -: Knee Sx -: Appendectomy -: Back Sx -: Shoulder Sx - Social History Alcohol use: No CD- Drugs: No Review of Systems is unable to be obtained Physical Examination - Physical Exam General: Unresponsive HEENT: Normocephalic, Mucous membr. moist/pink Respiratory: Diminished, Crackles/rales Cardiovascular: Edema Gastrointestinal: Distended - Studies Laboratory Data (last 24 hrs) 09/10/18 12:30: PT 50.1 H, INR 4.50 H*, APTT 43.1 H 09/10/18 12:30: WBC 5.4 D, Hgb 11.6 L, Hct 36.0 L, Plt Count 231 09/10/18 12:30: Sodium 136, Potassium 3.8, BUN 26 H, Creatinine 1.46 H, Glucose 128 H, Total Bilirubin 3.8 H, AST 46 H, ALT 43, Alkaline Phosphatase 63, Lipase 384 Assessment and Plan - Problems (Diagnosis) (1) Acute kidney injury superimposed on CKD Current Visit: Yes Status: Acute (2) Hepatic encephalopathy Current Visit: Yes Status: Acute (3) Hypotension Current Visit: Yes Status: Acute Qualifiers: Hypotension type: unspecified hypotension type Qualified Code(s): I95.9 - Hypotension, unspecified (4) Lactic acidosis Current Visit: Yes Status: Acute (5) Diabetes mellitus Current Visit: No Status: Chronic Qualifiers: Diabetes mellitus type: type 2 Diabetes mellitus custodial insulin use: with custodial use Diabetes mellitus complication status: with hyperglycemia Qualified Code(s): E11.65 - Type 2 diabetes mellitus with hyperglycemia; Z79.4 - rehab tech (current) use of insulin (6) Liver cirrhosis Current Visit: Yes Status: Chronic Qualifiers: - Plan This is a 63-year-old male with: Hepatic encephalopathy (Acute) K72.90 We will go ahead and admit the patient on the floor with telemetry. We will go ahead and start lactulose per rectum. If no improvement or bowel movement, we will go ahead and add rifampin Hypotension (Acute) I95.9 Continue gentle IV fluid hydration Continue to monitor blood pressure Lactic acidosis (Acute) E87.2 Acute kidney injury superimposed on CKD (Acute) N17.9, N18.9 Likely secondary to hypovolemia. We will continue gentle hydration Pacemaker (Acute) Z95.0 Stable. We will continue home medications once they are reconciled Diabetes mellitus (Chronic) E11.9 Accu-Cheks Mild sliding scale. We will continue to monitor and adjust as needed Liver cirrhosis (Chronic) K74.60 DVT prophylaxis: Lovenox GI prophylaxis: Protonix Diet: NPO Disposition: Admit to floor with tele. Pending symptomatic improvement. - Advance Directives Does patient have a Living Will: Yes Does patient have a Durable POA for Healthcare: Yes
[2018-09-10] MEDS ORDERED: NA CHLORIDE 0.9% 1,000 ML ONE (15:22)
[2018-09-10] MEDS: INSULIN -REGULAR HUMAN 50 UNIT/0.5 ML ML SQ SCH ×2 (17:36→21:00)
[2018-09-10] MEDS ORDERED: GLUCAGON 1 MG/VIAL IM PRN (17:45)
[2018-09-10] MEDS ORDERED: D50W 25 GM/50 ML SYRINGE IV PRN (17:45)
[2018-09-10] MEDS: NA CHLORIDE 0.9% 1,000 ML IV SCH (18:04)
[2018-09-10] MEDS: ENOXAPARIN 40 MG/0.4 ML SQ SCH (18:04)
[2018-09-10 19:47] LABS: Anisocytosis 1+; Blood Morphology Comment NOTED (NOT SEEN); Ovalocytes 1+; Platelet Estimate ADEQ; Poikilocytosis 1+; Urine White Blood Cell Casts OK
[2018-09-10] MEDS: LACTULOSE 20 GM/30 ML UCUP PR SCH (22:06)
[2018-09-11] MEDS ORDERED: Rifaximin 550 MG Tab PO ONE (00:14)
[2018-09-11] MEDS: NA CHLORIDE 0.9% 1,000 ML IV SCH (07:10)
[2018-09-11] MEDS: INSULIN -REGULAR HUMAN 50 UNIT/0.5 ML ML SQ SCH ×4 (07:30→20:31)
[2018-09-11 07:33] LABS: Absolute Lymphocytes (CBC) 1.9 K/uL (0.7-4.9); Absolute Monocytes 0.4 K/uL (0.1-1.3); Absolute Neutrophil 2.9 K/uL (1.8-8.0); Eosinophils % 0.5 % (0-4.4); Hematocrit 31.6 % (39.6-49.0); Lymphocytes % 36.2 % (15.3-44.8); MPV 9.8 fL (7.6-11.3); Monocytes % 8.3 % (3.3-12.3)
[2018-09-11 07:35] LABS: Protime INR 3.77
[2018-09-11 07:56] LABS: Albumin 2.8 g/dL (3.4-5.0); Bilirubin Total 3.2 mg/dL (0.2-1.0)
--- NOTE | 2018-09-11 09:46 | EKG ---
Test Date: 2018-09-10 Test Time: 12:18:44 Shade Bander: LURDES MEASUREMENT RESULTS: Intervals: Rate: 71 NM: 272 QRSD: 186 QT: 560 QTc: 608 [place]: P: NM: 272 QRS: 267 T: 64 INTERPRETIVE STATEMENTS: Sinus rhythm with 1st degree AV block with premature atrial complexes Nonspecific intraventricular block Lateral infarct, age undetermined Inferior infarct, age undetermined Abnormal ECG Compared to ECG 08/22/2018 22:26:20 Atrial premature complex(es) now present First degree AV block now present Myocardial infarct finding now present Ventricular-paced complex(es) or rhythm no longer present Atrial-sensed ventricular-paced complex(es) or rhythm no longer present Electronically Signed On 09-11-18 09:43:12 CDT by Pastor Coello
[2018-09-11] MEDS: ENOXAPARIN 40 MG/0.4 ML SQ SCH (09:56)
[2018-09-11] MEDS: LACTULOSE 20 GM/30 ML UCUP PR SCH (09:56)
[2018-09-11] MEDS: Rifaximin 550 MG Tab PO SCH ×2 (09:57→20:31)
[2018-09-11] MEDS: LACTULOSE 20 GM/30 ML UCUP PO SCH ×2 (13:44→20:30)
--- NOTE | 2018-09-11 22:31 | P.PN ---
Subjective Date of Service: 09/11/18 Chief Complaint: Altered mental status Subjective: Improving Patient seen and examined at bedside. family at bedside. Chart reviewed and case discussed with nursing staff. Patient more awake and alert this morning. Able to hold a conversation. Though still seems a bit confused. Seems to have trouble remembering things. Family states he is not at baseline Review of Systems 10-point ROS is otherwise unremarkable Physical Examination - Vital Signs Temperature: 97.6 F Blood Pressure: 116/59 Pulse: 78 Respirations: 16 Pulse Ox (%): 96 - Physical Exam General: Other (More awake and alert. Having trouble remembering things. In no acute distress) HEENT: Atraumatic, PERRLA, EOMI Neck: Supple, JVD not distended Respiratory: Clear to auscultation bilaterally, Normal air movement Cardiovascular: Regular rate/rhythm, Normal S1 S2 Gastrointestinal: Normal bowel sounds, Soft and benign, Non-distended, No ascites, No tenderness Assessment And Plan - Current Problems (Diagnosis) (1) Acute kidney injury superimposed on CKD Current Visit: Yes Status: Acute (2) Hepatic encephalopathy Current Visit: Yes Status: Acute (3) Hypotension Current Visit: Yes Status: Acute Qualifiers: Hypotension type: unspecified hypotension type Qualified Code(s): I95.9 - Hypotension, unspecified (4) Lactic acidosis Current Visit: Yes Status: Acute (5) Diabetes mellitus Current Visit: No Status: Chronic Qualifiers: Diabetes mellitus type: type 2 Diabetes mellitus terminal system operator insulin use: with terminal system operator use Diabetes mellitus complication status: with hyperglycemia Qualified Code(s): E11.65 - Type 2 diabetes mellitus with hyperglycemia; Z79.4 - manager intermediate (current) use of insulin (6) Liver cirrhosis Current Visit: Yes Status: Chronic Qualifiers: - Plan This is a 63-year-old male with: Hepatic encephalopathy (Acute) K72.90 Continue lactulose - we will transition him to oral as patient not tolerating an oral diet. Continue rifampin Hypotension (Acute) I95.9 Continue gentle IV fluid hydration Continue to monitor blood pressure, remains stable at this time Lactic acidosis (Acute) E87.2 Acute kidney injury superimposed on CKD (Acute) N17.9, N18.9 Likely secondary to hypovolemia. Resolved. We will continue gentle hydration and monitor. Pacemaker (Acute) Z95.0 Stable. We will continue home medications once they are reconciled Diabetes mellitus (Chronic) E11.9 Accu-Cheks Mild sliding scale. We will continue to monitor and adjust as needed Liver cirrhosis (Chronic) K74.60 DVT prophylaxis: Lovenox GI prophylaxis: Protonix Diet: Clear liquid diet, as patient more awake and alert. Disposition: Pending symptomatic improvement.
[2018-09-12 05:52] LABS: Magnesium 2.2 mg/dL (1.8-2.4); Phosphorus 3.4 mg/dL (2.5-4.9)
[2018-09-12] MEDS: INSULIN -REGULAR HUMAN 50 UNIT/0.5 ML ML SQ SCH ×4 (07:30→21:00)
[2018-09-12] MEDS: Rifaximin 550 MG Tab PO SCH ×2 (09:32→20:30)
[2018-09-12] MEDS: LACTULOSE 20 GM/30 ML UCUP PO SCH ×3 (09:33→20:30)
[2018-09-12] MEDS: ENOXAPARIN 40 MG/0.4 ML SQ SCH (09:33)
--- NOTE | 2018-09-12 13:16 | P.PN ---
Subjective Date of Service: 09/12/18 Chief Complaint: Altered mental status Subjective: Improving Patient seen and examined at bedside. No family at bedside. Chart reviewed and case discussed with nursing staff. Patient more awake and alert this morning, even compared to yesterday. Able to hold a conversation. Continues to be a bit confused. Seems to have trouble remembering things. Review of Systems 10-point ROS is otherwise unremarkable Physical Examination - Vital Signs Temperature: 97.6 F Blood Pressure: 116/59 Pulse: 78 Respirations: 16 Pulse Ox (%): 96 - Physical Exam General: In no apparent distress, Obese, Other (More alert, responds appropriate ) HEENT: Atraumatic, PERRLA, EOMI Neck: Supple, JVD not distended Respiratory: Clear to auscultation bilaterally, Normal air movement Cardiovascular: Regular rate/rhythm, Normal S1 S2 Gastrointestinal: Normal bowel sounds, Soft and benign, Non-distended, No ascites, No tenderness - Studies Microbiology Data (last 24 hrs): 09/10/18 13:05 Clean Catch Urine Whittaker Count - Final 09/10/18 13:05 Clean Catch Urine - Final Assessment And Plan - Current Problems (Diagnosis) (1) Acute kidney injury superimposed on CKD Current Visit: Yes Status: Acute (2) Hepatic encephalopathy Current Visit: Yes Status: Acute (3) Hypotension Current Visit: Yes Status: Acute Qualifiers: Hypotension type: unspecified hypotension type Qualified Code(s): I95.9 - Hypotension, unspecified (4) Lactic acidosis Current Visit: Yes Status: Acute (5) Diabetes mellitus Current Visit: No Status: Chronic Qualifiers: Diabetes mellitus type: type 2 Diabetes mellitus intermediate project manager insulin use: with intermediate project manager use Diabetes mellitus complication status: with hyperglycemia Qualified Code(s): E11.65 - Type 2 diabetes mellitus with hyperglycemia; Z79.4 - intermediate project manager (current) use of insulin (6) Liver cirrhosis Current Visit: Yes Status: Chronic Qualifiers: - Plan This is a 63-year-old male with: Hepatic encephalopathy (Acute) K72.90 Improving Continue lactulose - we will transition him to oral as patient not tolerating an oral diet. Continue rifampin Hypotension (Acute) I95.9 Continue gentle IV fluid hydration Continue to monitor blood pressure, remains stable at this time Lactic acidosis (Acute) E87.2 Acute kidney injury superimposed on CKD (Acute) N17.9, N18.9 Likely secondary to hypovolemia. Resolved. We will continue gentle hydration and monitor. Pacemaker (Acute) Z95.0 Stable. We will continue home medications once they are reconciled Diabetes mellitus (Chronic) E11.9 Accu-Cheks Mild sliding scale. We will continue to monitor and adjust as needed Liver cirrhosis (Chronic) K74.60 DVT prophylaxis: Lovenox GI prophylaxis: Protonix Diet: Clear liquid diet, as patient more awake and alert. Disposition: Pending symptomatic improvement.
[2018-09-12 15:06] LABS: Absolute Lymphocytes (CBC) 2.3 K/uL (0.7-4.9); Absolute Monocytes 0.3 K/uL (0.1-1.3); Absolute Neutrophil 2.5 K/uL (1.8-8.0); Basophils % 0.6 % (0-1.3); Hematocrit 33.4 % (39.6-49.0); Lymphocytes % 43.5 % (15.3-44.8); MPV 9.9 fL (7.6-11.3); Monocytes % 6.6 % (3.3-12.3); RBC Red Blood Cell Count 4.08 M/uL (4.33-5.43)
[2018-09-12 15:17] LABS: Bilirubin Total 3.1 mg/dL (0.2-1.0); Potassium 4.2 mmol/L (3.5-5.1); Protein, Total 6.1 g/dL (6.4-8.2)
[2018-09-13] MEDS: INSULIN -REGULAR HUMAN 50 UNIT/0.5 ML ML SQ SCH ×4 (07:30→21:00)
[2018-09-13 07:45] LABS: Albumin 2.8 g/dL (3.4-5.0); Potassium 3.8 mmol/L (3.5-5.1); Protein, Total 5.9 g/dL (6.4-8.2)
[2018-09-13 07:47] LABS: Absolute Lymphocytes (CBC) 2.2 K/uL (0.7-4.9); Absolute Monocytes 0.4 K/uL (0.1-1.3); Absolute Neutrophil 1.7 K/uL (1.8-8.0); Basophils % 3.1 % (0-1.3); Eosinophils % 0.6 % (0-4.4); Hematocrit 31.3 % (39.6-49.0); Lymphocytes % 49.3 % (15.3-44.8); MPV 9.3 fL (7.6-11.3); Monocytes % 8.3 % (3.3-12.3); RBC Red Blood Cell Count 3.84 M/uL (4.33-5.43)
[2018-09-13] MEDS ORDERED: POTASSIUM CL SA 10 MEQ TAB PO ONE (07:57)
[2018-09-13] MEDS: ENOXAPARIN 40 MG/0.4 ML SQ SCH (08:44)
[2018-09-13] MEDS: LACTULOSE 20 GM/30 ML UCUP PO SCH ×3 (08:44→21:23)
[2018-09-13] MEDS: Rifaximin 550 MG Tab PO SCH ×2 (08:45→21:25)
--- NOTE | 2018-09-13 12:09 | P.PN ---
Subjective Date of Service: 09/13/18 Chief Complaint: Altered mental status Patient seen and examined at bedside. No family at bedside. Chart reviewed and case discussed with nursing staff. Patient more awake and alert this morning, no changes from yesterday. Able to hold a conversation, though continues to be confused. Seems to have trouble remembering things. Complains of abdominal pain, or Lovenox shot was given. No bruising noted in the area. Review of Systems 10-point ROS is otherwise unremarkable Physical Examination - Vital Signs Temperature: 97.3 F Blood Pressure: 105/55 Pulse: 73 Respirations: 18 Pulse Ox (%): 95 - Physical Exam General: Alert, In no apparent distress, Confused Respiratory: Clear to auscultation bilaterally, Normal air movement Cardiovascular: Regular rate/rhythm, Normal S1 S2 Gastrointestinal: No ascites, Tenderness (Mild tenderness to deep palpation in right upper and lower quadrant) Assessment And Plan - Current Problems (Diagnosis) (1) Acute kidney injury superimposed on CKD Current Visit: Yes Status: Acute (2) Hepatic encephalopathy Current Visit: Yes Status: Acute (3) Hypotension Current Visit: Yes Status: Acute Qualifiers: Hypotension type: unspecified hypotension type Qualified Code(s): I95.9 - Hypotension, unspecified (4) Lactic acidosis Current Visit: Yes Status: Acute (5) Diabetes mellitus Current Visit: No Status: Chronic Qualifiers: Diabetes mellitus type: type 2 Diabetes mellitus detention insulin use: with termite control representative use Diabetes mellitus complication status: with hyperglycemia Qualified Code(s): E11.65 - Type 2 diabetes mellitus with hyperglycemia; Z79.4 - long-term (current) use of insulin (6) Liver cirrhosis Current Visit: Yes Status: Chronic Qualifiers: - Plan This is a 63-year-old male with: Hepatic encephalopathy (Acute) K72.90 Improving Continue lactulose - we will transition him to oral as patient now tolerating an oral diet. Continue rifampin Abdominal ultrasound ordered, pending Hypotension (Acute) I95.9 Continue gentle IV fluid hydration Continue to monitor blood pressure, remains low but stable at this time Lactic acidosis (Acute) E87.2 Acute kidney injury superimposed on CKD (Acute) N17.9, N18.9 Likely secondary to hypovolemia. Resolved. We will continue gentle hydration and monitor. Pacemaker (Acute) Z95.0 Stable. We will continue home medications Diabetes mellitus (Chronic) E11.9 Accu-Cheks Mild sliding scale. We will continue to monitor and adjust as needed Liver cirrhosis (Chronic) K74.60 DVT prophylaxis: Lovenox GI prophylaxis: Protonix Diet: Clear liquid diet, as patient more awake and alert. Disposition: Pending symptomatic improvement.
[2018-09-14 06:42] LABS: Absolute Lymphocytes (CBC) 1.5 K/uL (0.7-4.9); Absolute Monocytes 0.3 K/uL (0.1-1.3); Absolute Neutrophil 1.9 K/uL (1.8-8.0); Basophils % 3.4 % (0-1.3); Eosinophils % 0.7 % (0-4.4); Hematocrit 33.2 % (39.6-49.0); Lymphocytes % 37.9 % (15.3-44.8); MPV 9.4 fL (7.6-11.3); Monocytes % 8.5 % (3.3-12.3); RBC Red Blood Cell Count 4.03 M/uL (4.33-5.43)
[2018-09-14 07:13] LABS: Albumin 2.8 g/dL (3.4-5.0); Bilirubin Total 2.4 mg/dL (0.2-1.0); Potassium 4.5 mmol/L (3.5-5.1)
[2018-09-14] MEDS: INSULIN -REGULAR HUMAN 50 UNIT/0.5 ML ML SQ SCH ×4 (07:30→21:00)
[2018-09-14] MEDS: Rifaximin 550 MG Tab PO SCH ×2 (09:00→20:47)
[2018-09-14 09:07] LABS: Platelet Estimate ADEQ
[2018-09-14 09:08] LABS: Blood Morphology Comment NOT SEEN (NOT SEEN)
--- NOTE | 2018-09-14 09:24 | RAD REPORT ---
EXAM DESCRIPTION: US - Abdomen Exam Complete - 09/14/2018 8:12 am CLINICAL HISTORY: Abdominal pain hepatic encephalopathy COMPARISON: September 03, 2018 cat scan FINDINGS: A cirrhotic liver is seen. The evaluation is suboptimal secondary to technical factors. Th e evaluation of the previously described lesions is nondiagnostic on this exam. Multiple small gallstones The gallbladder wall is not thickened. The biliary tree is normal caliber. The pancreas appears normal size and echotexture The right kidney measures 10 centimeters with a normal echotexture. The left kidney measures 12 centimeters with a normal echotexture. The spleen measures 10 centimeters. The abdominal aorta and inferior vena cava appear unremarkable Ascites is not visualized IMPRESSION: Cholelithiasis without evidence of cholecystitis Cirrhosis
[2018-09-14] MEDS: LACTULOSE 20 GM/30 ML UCUP PO SCH ×3 (09:30→20:48)
[2018-09-14] MEDS: ENOXAPARIN 40 MG/0.4 ML SQ SCH (09:31)
[2018-09-14 10:59] LABS: Protime INR 1.35
[2018-09-14] MEDS: GABAPENTIN 100 MG CAP PO SCH ×2 (14:54→20:48)
--- NOTE | 2018-09-14 16:04 | PN ---
Date of Progress Note: 09/14/2018 Subjective: The patient seen and examined, chart reviewed, and case discussed with RN. No family at the bedside. No acute events overnight. The patient had abdominal ultrasound done today. Medications: List reviewed. Code Status: Full code. Physical Examination: Vital Signs: Temperature 97.3, heart rate 78, blood pressure 94/54, respirations 17, O2 96% on room air. General: Awake, alert, oriented x3. No acute distress. Elderly male. Obese. BMI 36.4. CV: S1, S2. Regular rate and rhythm. Peripheral pulses present. Respiratory: Moving air well bilaterally. No wheezing. Gastrointestinal: Abdomen is soft, nontender, nondistended. Positive bowel sounds. Extremities: No clubbing, cyanosis, or edema. Neurologic: Nonfocal. Cranial nerves 2 through 12 intact grossly. Speech is normal. Laboratory Data: Sodium 140, potassium 4.5, chloride 110, CO2 of 20, BUN 11, creatinine 0.95, glucos e 95, calcium 8.1, total bilirubin 2.4, albumin 2.8. WBC 3.9, H and H 10.7 and 33.2, platelets 166, neutrophils 49%. INR is pending. Blood cultures, no growth to date. Urine culture, no growth. Abd ominal ultrasound shows cholelithiasis without evidence of cholecystitis and shows cirrhosis. Assessment And Plan: 1.Hepatic encephalopathy, improved. Continue lactulose. The patient now back on diet. Continue ri fampin. Abdominal ultrasound does show cirrhosis. Unclear etiology. 2.Hypotension. Continue with gentle IV fluid hydration. The patient is asymptomatic, has been low since he came in. 3.Lactic acidosis. 4.Acute kidney injury on chronic kidney disease. Creatinine has normalized. We will continue to mo nitor. Avoid NSAIDs. 5.Status post pacemaker. 6.Diabetes mellitus type 2. Continue sliding scale insulin. Monitor Accu-Cheks. Non-insulin requi ring. 7.Liver cirrhosis. 8.Deep venous thrombosis prophylaxis with Lovenox. 9.Coagulopathy. INR has improved. We will recheck INR today. The patient is on Xarelto at home, u nknown reason. SA/MODL Voice ID: [id number] Report ID: [id number]
[2018-09-14] MEDS: MAGNESIUM HYDROXIDE 8% 30 ML PO PRN (17:41)
[2018-09-14] MEDS: RIVAROXABAN 20 MG TABLET PO SCH (17:41)
[2018-09-14] MEDS: AMIODARONE HCL 200 MG TAB PO SCH (20:48)
[2018-09-15 06:11] LABS: Absolute Lymphocytes (CBC) 1.3 K/uL (0.7-4.9); Absolute Monocytes 0.4 K/uL (0.1-1.3); Absolute Neutrophil 2.1 K/uL (1.8-8.0); Basophils % 2.1 % (0-1.3); Eosinophils % 1.1 % (0-4.4); Hematocrit 32.8 % (39.6-49.0); Lymphocytes % 34.3 % (15.3-44.8); MPV 9.6 fL (7.6-11.3); Monocytes % 9.4 % (3.3-12.3); RBC Red Blood Cell Count 3.97 M/uL (4.33-5.43)
[2018-09-15 06:27] LABS: Albumin 2.7 g/dL (3.4-5.0); Bilirubin Total 1.9 mg/dL (0.2-1.0); Potassium 4.1 mmol/L (3.5-5.1); Protein, Total 5.9 g/dL (6.4-8.2)
[2018-09-15] MEDS: INSULIN -REGULAR HUMAN 50 UNIT/0.5 ML ML SQ SCH ×4 (07:30→21:00)
[2018-09-15] MEDS: Rifaximin 550 MG Tab PO SCH ×2 (09:00→21:00)
[2018-09-15] MEDS: LACTULOSE 20 GM/30 ML UCUP PO SCH ×3 (09:06→21:03)
[2018-09-15] MEDS: MAGNESIUM HYDROXIDE 8% 30 ML PO PRN (09:06)
[2018-09-15] MEDS: POLYETHYL GLY 3350 17 GM/DOSE PO SCH (09:06)
[2018-09-15] MEDS: GABAPENTIN 100 MG CAP PO SCH ×3 (09:07→21:03)
[2018-09-15] MEDS: AMIODARONE HCL 200 MG TAB PO SCH ×2 (09:07→21:03)
[2018-09-15] MEDS: FOLIC ACID 1 MG TABLET PO SCH (09:07)
[2018-09-15] MEDS: FERROUS SULFATE 325 MG TAB PO SCH (09:07)
[2018-09-15] MEDS: DULOXETINE 20 MG CAP PO SCH (09:14)
[2018-09-15] MEDS ORDERED: FLEET ENEMA ADULT PR ONE (13:56)
[2018-09-15] MEDS: RIVAROXABAN 20 MG TABLET PO SCH (16:39)
--- NOTE | 2018-09-15 21:21 | PN ---
Date of Progress Note: 09/15/2018 Subjective: The patient was seen and examined. Chart reviewed and case discussed with RN. Sister a t the bedside. Treatment plan explained. All questions answered. Medications: List reviewed. Physical Examination: Vital Signs: Temperature 96.4, heart rate 58, blood pressure 112/57, respirations 18, O2 96% on room air. General: Awake, alert, oriented x3. Elderly male, obese, BMI of 36. CV: S1, S2. Regular rate and rhythm. Peripheral pulses are present. Respiratory: Moving air well bilaterally. No wheezing. Gastrointestinal: Abdomen is mildly distended, soft, nontender. Positive bowel sounds. Extremities: No clubbing, cyanosis, or edema. Neurologic: Nonfocal. Laboratory Data: Sodium 138, potassium 4.1, chloride 107, CO2 21, BUN 10, creatinine 0.9, glucose 12 5, calcium 8, total bilirubin 1.9, AST 46, ALT 42, albumin 2.7. WBC 3.9, H and H 10.4 and 32.8, plat elets 168, neutrophils 53%. Abdominal ultrasound showed cholelithiasis without evidence of cholecyst itis. Also shows cirrhosis. Assessment And Plan: A 63-year-old male with: 1.Hepatic encephalopathy, resolving. Ammonia level still elevated. However, the patient seems to b e back to his baseline per sister. 2.Constipation. We will continue lactulose. Add enema. Continue stool softeners. 3.Hypotension. We will continue with the gentle IV fluid hydration, asymptomatic, blood pressure st ays in the low side. 4.Lactic acidosis, improved. 5.Acute kidney injury on chronic kidney disease stage 2. Creatinine now normalized. We will avoid NSAIDs and monitor creatinine. 6.Status post pacemaker. 7.Diabetes mellitus type 2 with hyperglycemia, non-insulin requiring. We will continue Accu-Cheks a nd sliding scale insulin. 8.Liver cirrhosis. 9.Coagulopathy, resolved. We will resume Xarelto. The patient's sister states he takes it for his pacemaker, likely had atrial fibrillation in the past, currently paced rhythm. 10.Deep venous thrombosis prophylaxis. Lovenox has been discontinued. The patient currently on Xar elto. Plan: Discharge once accepted by intermediate facility. /MODL Voice ID: [id number] Report ID: [id number]
[2018-09-16] MEDS: INSULIN -REGULAR HUMAN 50 UNIT/0.5 ML ML SQ SCH ×4 (07:30→20:17)
[2018-09-16 07:32] LABS: ALT/SGPT 41 U/L (12-78); AST/SGOT 49 U/L (15-37); Albumin 2.8 g/dL (3.4-5.0); Alkaline Phosphatase 56 U/L (45-117); BUN Blood Urea Nitrogen 10 mg/dL (7-18); Bicarbonate 22 mmol/L (21-32); Bilirubin Total 1.9 mg/dL (0.2-1.0); Glucose Level 89 mg/dL (74-106); Magnesium 1.9 mg/dL (1.8-2.4); Phosphorus 2.8 mg/dL (2.5-4.9); Potassium 4.5 mmol/L (3.5-5.1); Protein, Total 6.1 g/dL (6.4-8.2); Sodium Level 138 mmol/L (136-145)
[2018-09-16 07:46] LABS: Absolute Lymphocytes (CBC) 1.8 K/uL (0.7-4.9); Absolute Monocytes 0.4 K/uL (0.1-1.3); Absolute Neutrophil 2.2 K/uL (1.8-8.0); Basophils % 1.4 % (0-1.3); Eosinophils % 0.8 % (0-4.4); Hematocrit 34.2 % (39.6-49.0); Lymphocytes % 39.2 % (15.3-44.8); Monocytes % 9.4 % (3.3-12.3); RBC Red Blood Cell Count 4.16 M/uL (4.33-5.43)
[2018-09-16] MEDS: LACTULOSE 20 GM/30 ML UCUP PO SCH ×3 (09:41→20:17)
[2018-09-16] MEDS: DULOXETINE 20 MG CAP PO SCH (09:41)
[2018-09-16] MEDS: POLYETHYL GLY 3350 17 GM/DOSE PO SCH (09:42)
[2018-09-16] MEDS: FERROUS SULFATE 325 MG TAB PO SCH (09:42)
[2018-09-16] MEDS: FOLIC ACID 1 MG TABLET PO SCH (09:42)
[2018-09-16] MEDS: AMIODARONE HCL 200 MG TAB PO SCH ×2 (09:42→20:16)
[2018-09-16] MEDS: GABAPENTIN 100 MG CAP PO SCH ×3 (09:42→20:16)
[2018-09-16] MEDS: Rifaximin 550 MG Tab PO SCH ×2 (09:43→20:16)
[2018-09-16] MEDS: RIVAROXABAN 20 MG TABLET PO SCH (17:31)
--- NOTE | 2018-09-17 02:13 | DS ---
Admitting Diagnoses: 1.Acute kidney injury, superimposed on chronic kidney disease. 2.Hepatic encephalopathy, acute. 3.Acute hypotension. 4.Lactic acidosis. 5.Diabetes mellitus, type 2, with long-term use of insulin with hyperglycemia. 6.Liver cirrhosis, chronic. Discharge Diagnoses: 1.Acute hepatic encephalopathy, clinically back to baseline. Ammonia level trending down. 2.Constipation, improved. 3.Hypotension, asymptomatic. 4.Lactic acidosis, improved. 5.Acute kidney injury on chronic kidney disease, stage 2. Creatinine normalized. 6.Status post pacemaker. 7.Diabetes mellitus, type 2, with hyperglycemia, non-insulin requiring. 8.Liver cirrhosis. 9.Coagulopathy, resolved. 10.On chronic anticoagulation. Hospital Course: The patient is a 63-year-old male with past medical history of diabetes, hypertensi on, pacemaker, who was admitted for altered mental status. The patient was then found to be hypotens elvie, had an elevated creatinine level and elevated ammonia level of 174. The patient was started on lactulose. His ammonia level improved. His mental status came back to baseline. The patient also h ad some coagulopathy and his Xarelto was stopped. Repeat INR was within normal limits. Xarelto was restarted. The patient's cultures remained negative. He was then cleared for discharge. However, h e was very weak and required a snf facility. [facility] [place], where his sister lives and was discharged in a stable condition. Activity: As tolerated. Fall precautions. Diet: Low-sodium, fluid-restricted diet. Followup: Follow up with primary care physician in 1 week. Return to ER for worsening condition. F ollow up with vascular surgery in 2-4 weeks. Medications: As per medication reconciliation list. Physical Examination: General: Awake, alert, oriented x3. No acute distress. CV: S1, S2. No murmurs. Respiratory: Moving air well bilaterally. Abdomen: Soft, nontender, nondistended. Positive bowel sounds. Extremities: No clubbing or cyanosis. No edema. Neurologic: Nonfocal. Total time spent discharging the patient was 39 minutes. /MARYLU Voice ID: [id number] Report ID: [id number]
[2018-09-17] MEDS: INSULIN -REGULAR HUMAN 50 UNIT/0.5 ML ML SQ SCH ×2 (07:30→11:30)
[2018-09-17 07:50] LABS: Absolute Lymphocytes (CBC) 1.9 K/uL (0.7-4.9); Absolute Monocytes 0.4 K/uL (0.1-1.3); Absolute Neutrophil 2.4 K/uL (1.8-8.0); Basophils % 1.8 % (0-1.3); Eosinophils % 0.1 % (0-4.4); Hematocrit 33.4 % (39.6-49.0); MPV 9.5 fL (7.6-11.3); Monocytes % 7.9 % (3.3-12.3); RBC Red Blood Cell Count 4.09 M/uL (4.33-5.43)
[2018-09-17 08:13] LABS: ALT/SGPT 45 U/L (12-78); AST/SGOT 54 U/L (15-37); Albumin 2.9 g/dL (3.4-5.0); Alkaline Phosphatase 59 U/L (45-117); BUN Blood Urea Nitrogen 10 mg/dL (7-18); Bicarbonate 21 mmol/L (21-32); Bilirubin Total 1.9 mg/dL (0.2-1.0); Glucose Level 123 mg/dL (74-106); Potassium 3.7 mmol/L (3.5-5.1); Sodium Level 137 mmol/L (136-145)
[2018-09-17] MEDS ORDERED: FLEET ENEMA ADULT PR ONE (09:08)
[2018-09-17] MEDS: LACTULOSE 20 GM/30 ML UCUP PO SCH (09:30)
[2018-09-17] MEDS: FERROUS SULFATE 325 MG TAB PO SCH (09:30)
[2018-09-17] MEDS: POLYETHYL GLY 3350 17 GM/DOSE PO SCH (09:30)
[2018-09-17] MEDS: FOLIC ACID 1 MG TABLET PO SCH (09:30)
[2018-09-17] MEDS: AMIODARONE HCL 200 MG TAB PO SCH (09:31)
[2018-09-17] MEDS: GABAPENTIN 100 MG CAP PO SCH (09:32)
[2018-09-17] MEDS: Rifaximin 550 MG Tab PO SCH (09:32)
[2018-09-17] MEDS: DULOXETINE 20 MG CAP PO SCH (09:33)
--- NOTE | 2018-09-17 17:35 | PN ---
Date of Progress Note: 09/17/2018 Subjective: The patient seen and examined. Chart reviewed and case discussed with RN. Sister at e bedside. The patient still awaiting to be accepted by facility in [place]. Yesterday, the patien t's daughter was at the bedside and zachery chavez was called due to disturbance with her aunt. Medications: List reviewed. Physical Examination: Vital Signs: Temperature 97.5, heart rate 84, blood pressure 160/78, respirations 16, O2 99% on room air. General: Awake, alert, oriented x3. Elderly male, obese, BMI 36. CV: S1, S2. Regular rate and rhythm. Peripheral pulses present. Respiratory: Moving air well bilaterally. No wheezing or stridor. Gastrointestinal: Abdomen is soft, nontender, nondistended. Positive bowel sounds. Extremities: No clubbing, cyanosis, or edema. Neuro: Nonfocal. Speech is normal. Alert and oriented x3. Laboratory Data: Sodium 137, potassium 3.7, chloride 107, CO2 21, BUN 10, creatinine 0.74, glucose 1 23, calcium 8.1, ammonia 115. WBC 4.9, H and H 10.7 and 33.4, platelets 179. Blood cultures, no nadia wth final. Assessment: A 63-year-old male with. 1.Acute hepatic encephalopathy, back to baseline. 2.Constipation. Continue with enema and stool softeners. 3.Hypotension, asymptomatic. 4.Lactic acidosis, resolved. 5.Acute kidney injury superimposed on chronic kidney disease, stage 2. Creatinine normalized. 6.Status post pacemaker. 7.Diabetes mellitus type 2 with hyperglycemia, non-insulin requiring. 8.Liver cirrhosis. 9.Coagulopathy, resolved. 10.Chronic anticoagulation. Plan: Discharge to shelter facility in [place] today. SA/MODL Voice ID: [id number] Report ID: [id number]
== END 2018-09-17 12:15 | DRG 442 ==
LOC: ER 11:32 → ERHOLD 15:01 → 2ND 17:22
PROVIDERS: ADMIT Family Medicine; ATTEND Family Medicine
DX: K72.90 Hepatic failure, unspecified without coma (principal); N17.9 Acute kidney failure, unspecified; E87.2 Acidosis; E86.1 Hypovolemia; I95.9 Hypotension, unspecified; E11.22 Type 2 diabetes mellitus with diabetic chronic kidney disease; E11.65 Type 2 diabetes mellitus with hyperglycemia; I12.9 Hypertensive chronic kidney disease with stage 1 through stage 4 chronic kidney disease, or unspecified chronic kidney disease; N18.2 Chronic kidney disease, stage 2 (mild); K74.60 Unspecified cirrhosis of liver; G89.29 Other chronic pain; E66.9 Obesity, unspecified; Z68.36 Body mass index [BMI] 36.0-36.9, adult; K59.00 Constipation, unspecified; R79.1 Abnormal coagulation profile; Z79.84 Long term (current) use of oral hypoglycemic drugs; Z91.81 History of falling; Z95.0 Presence of cardiac pacemaker
CPT/HCPCS: 36415; 51702; 70450; 71045; 76700; 80048; 80053; 80076; 81003; 81015; 82140; 82550; 82553; 82962; 83605; 83690; 83735; 84100; 84145; 84484; 85025; 85610; 85730; 87040; 87086; 87088; 92610; 93005; 94760; 96365; 96366; 97116; 97163; 97530; 99285; J0696; J1650; J7030